=== PATIENT | female | born 1945 | race Hispanic/Latino ===

== ENCOUNTER 2017-04-24 21:30 | Inpatient (IN) | payer MEDICARE, OTHER ==
[2017-04-24 21:34] VITALS: BMI 27.8
[2017-04-24] MEDS ORDERED: Nitroglycerin 2% Ointment Foilpak UD TOP STA (21:39)
--- NOTE | 2017-04-24 21:39 | ED PDOC ---
Arrival/HPI - General Time Seen by Provider: 04/24/17 21:33 Historian: Patient - History of Present Illness Narrative History of Present Illness (Text): 04/24/17 21:39 Angie Narvaez is a 71 year old female, whose past medical history includes RI, CAD status post 3 stents, hyperlipidemia, hypertension, type 2 diabetes, myasthenia gravis, ITP, and cholecystectomy, who presents to the Emergency department complaining of chest pain. Patient states she has been experiencing intermittent burning chest pain today with associated belching. Patient denies any fever, chills, shortness of breath, abdominal pain, nausea, vomiting, diarrhea, urinary symptoms, back pain, neck pain, headache, dizziness , or any other complaints. PMD: Dr. Rosaura Saldana Hot Man: Dr. Mady Arteaga Time/Duration: Other (today) Symptom Onset: Gradual Symptom Course: Intermittent Quality: Burning Activities at Onset: Light Context: Home Past Medical History - Provider Review Nursing Documentation Reviewed: Yes - Infectious Disease Hx of Infectious Diseases: None - Cardiac Hx Pacemaker: No - Pulmonary Hx Respiratory Disorders: Yes Hx Asthma: Yes Hx Bronchitis: Yes - Neurological Hx Paralysis: No - HEENT Hx HEENT Disorder: Yes (reading glasses) Hx Cataracts: Yes - Renal Hx Renal Disorder: No (denies) - Endocrine/Metabolic Hx Diabetes Mellitus Type 2: Yes Hx Hypothyroidism: Yes - Hematological/Oncological Hx Blood Transfusions: Yes Hx Blood Transfusion Reaction: No - Integumentary Hx Dermatological Disorder: Yes Hx Basal Cell Carcinoma: Yes - Musculoskeletal/Rheumatological Hx Musculoskeletal Disorders: Yes - Gastrointestinal Hx Gastrointestinal Disorders: No - Genitourinary/Gynecological Hx Genitourinary Disorders: No - Psychiatric Hx Emotional Abuse: No Hx Physical Abuse: No Hx Substance Use: No - Surgical History Hx Cholecystectomy: Yes Hx Coronary Stent: Yes (x3) Hx Hysterectomy: Yes Hx Orthopedic Surgery: Yes (right knee) - Anesthesia Hx Anesthesia Reactions: No Hx Malignant Hyperthermia: No - Suicidal Assessment Feels Threatened In Home Enviroment: No Family/Social History - Physician Review Nursing Documentation Reviewed: Yes Family/Social History: Unknown Family HX Smoking Status: Never Smoked Hx Alcohol Use: No Hx Substance Use: No Hx Substance Use Treatment: No Allergies/Home Meds Allergies/Adverse Reactions: Allergies clarithromycin [From Biaxin] Allergy (Severe, Verified 04/24/17 21:40) ANAPHYLAXIS glucosamine Allergy (Severe, Verified 04/24/17 21:40) ANAPHYLAXIS Home Medications: Home Meds Medication Instructions Recorded Confirmed MetFORMIN [glucOPHAGE] 500 mg PO TID 06/05/15 04/24/17 Clopidogrel [Plavix] 75 mg PO DAILY 06/08/15 04/24/17 Metoprolol Succinate [Metoprolol 25 mg PO DAILY 06/08/15 04/24/17 Succinate Xl] Rosuvastatin Calcium [Crestor] 10 mg PO DAILY 06/08/15 04/24/17 Aspirin [Aspirin] 81 mg PO DAILY 06/10/15 04/24/17 Cholecalciferol (Vitamin D3) 1,000 unit PO DAILY 04/03/16 04/24/17 [Vitamin D3] Levothyroxine Sodium [Levothroid] 137 mcg PO QAM 04/03/16 04/24/17 Magnesium Oxide [Magnesium] 400 mg PO DAILY 04/03/16 04/24/17 Multivit-Min/FA/Lycopen/Lutein 1 tab PO DAILY 04/03/16 04/24/17 [Centrum Silver Tablet] Ubidecarenone [Coq-10] 200 mg PO DAILY 04/03/16 04/24/17 Valsartan [Diovan] 80 mg PO BID 04/03/16 04/24/17 Eltrombopag Olamine [Promacta] 1 tab PO DAILY 04/24/17 04/24/17 Review of Systems - Physician Review All systems were reviewed & negative as marked: Yes - Review of Systems Constitutional: Normal. absent: Fevers Eyes: Normal ENT: Normal Respiratory: Normal. absent: SOB, Cough Cardiovascular: Chest Pain Gastrointestinal: Normal. absent: Abdominal Pain, Diarrhea, Nausea, Vomiting Genitourinary Female: Normal. absent: Dysuria, Frequency, Hematuria, Urine Output Changes Musculoskeletal: Normal. absent: Back Pain, Neck Pain Skin: Normal. absent: Rash Neurological: Normal. absent: Headache, Dizziness Endocrine: Normal Hemo/Lymphatic: Normal Psychiatric: Normal Physical Exam Vital Signs Reviewed: Yes Vital Signs Temp Pulse Resp BP Pulse Ox 04/24/17 23:09 91 H 18 152/96 H 99 04/24/17 22:36 86 185/96 H 04/24/17 22:27 85 16 185/96 H 98 04/24/17 21:34 98.2 F 93 H 18 208/120 H 99 Temperature: Afebrile Blood Pressure: Hypertensive Pulse: Regular Respiratory Rate: Normal Appearance: Positive for: Well-Appearing, Non-Toxic, Comfortable Pain Distress: None Mental Status: Positive for: Alert and Oriented X 3 - Systems Exam Head: Present: Atraumatic, Normocephalic Pupils: Present: PERRL Extroacular Muscles: Present: EOMI Conjunctiva: Present: Normal Mouth: Present: Moist Mucous Membranes Neck: Present: Normal Range of Motion Respiratory/Chest: Present: Clear to Auscultation, Good Air Exchange. No: Respiratory Distress, Accessory Muscle Use Cardiovascular: Present: Regular Rate and Rhythm, Normal S1, S2. No: Murmurs Abdomen: Present: Normal Bowel Sounds. No: Tenderness, Distention, Peritoneal Signs Back: Present: Normal Inspection Upper Extremity: Present: Normal Inspection. No: Cyanosis, Edema Lower Extremity: Present: Normal Inspection. No: Edema Neurological: Present: GCS=15, CN II-XII Intact, Speech Normal Skin: Present: Warm, Dry, Normal Color. No: Rashes Psychiatric: Present: Alert, Oriented x 3, Normal Insight, Normal Concentration Medical Decision Making ED Course and Treatment: 04/24/17 21:39 Impression: 71 year old female complaining of intermittent burning chest pain radiating to her back and belching today. Plan: -- EKG -- CXR -- Labs, cardiac enzymes -- Urinalysis -- Nitroglycerin -- Reassess and disposition Prior Visits: Notes and results from previous visits were reviewed. On 04/15/2015, pt was seen in the Emergency department for substernal chest burning to bilateral shoulders. Pt was admitted to the hospital for further evaluation. Progress Notes: Reviewed EKG, NSR at [address]-segment elevations or depressions, no T-wave inversions, normal intervals. 04/24/17 22:06 Reviewed radiology, CXR shows no acute processes. 04/24/17 22:35 Case discussed with medical representative, who is aware and agrees with plan. Case discussed with Dr. Johns, who is aware and agrees with plan. Accepts pt in to hospitalist service. Pt will go to Telemetry observation for chest pain and hypertension. Discussed results and hospital observation plan with pt, who is aware and verbalizes understanding. - Lab Interpretations Lab Results: 04/24/17 21:39 04/24/17 21:39 Lab Results 04/24/17 21:40: PT 10.3, INR 0.95, APTT 23.1 L 04/24/17 21:39: Sodium 138, Potassium 4.9, Chloride 99, Carbon Dioxide 24, Anion Gap 20, BUN 16, Creatinine 0.8, Est GFR ( Amer) > 60, Est GFR (Non- Af Amer) > 60, Random Glucose 157 H, Calcium 9.7, Magnesium 1.9, Total Bilirubin 0.5, AST 27, ALT 33, Alkaline Phosphatase 71, Lactate Dehydrogenase 403, Total Creatine Kinase 50, Troponin I < 0.01 D, Total Protein 8.1, Albumin 4.9 H, Globulin 3.2, Albumin/Globulin Ratio 1.5 04/24/17 21:39: WBC 11.0 D, RBC 4.29, Hgb 12.7, Hct 37.1, MCV 86.5, MCH 29.6, MCHC 34.2, RDW 12.7, Plt Count 147, MPV 9.5, Gran % 56.0, Lymph % (Auto) 36.6 H , [place] % (Auto) 6.3 H, Eos % (Auto) 0.8 L, Baso % (Auto) 0.3, Gran # 6.16, Lymph # 4.0 H, [place] # 0.7 H, Eos # 0.1, Baso # 0.03 I have reviewed the lab results: Yes - RAD Interpretation Radiology Orders: 04/24/17 21:40 CHEST PORTABLE [RAD] Stat Tamper Operator: ED Physician - EKG Interpretation Interpreted by ED Physician: Yes Type: 12 lead EKG - Medication Orders Current Medication Orders: Aspirin (Ecotrin) 81 mg PO DAILY [facility] Last Admin: 04/25/17 11:39 Dose: 81 mg Cholecalciferol (Vitamin D) 1,000 iu PO DAILY [facility] Last Admin: 04/25/17 11:39 Dose: 1,000 iu Clonidine HCl (Catapres) 0.1 mg PO BID PRN PRN Reason: Systolic Blood Pressure Clopidogrel Bisulfate (Plavix) 75 mg PO DAILY [facility] Last Admin: 04/25/17 11:43 Dose: 75 mg Famotidine (Pepcid) 20 mg IVP BID [facility] Last Admin: 04/25/17 17:40 Dose: 20 mg IVP Administration Document 04/25/17 17:40 (Rec: 04/25/17 17:41 [place] [id number]) Charges for Administration # of IVP Administrations 1 Home Med (Home Med) 1 unit PO ACB [facility] Home Med (Home Med) 1 unit PO BID [facility] Last Admin: 04/25/17 18:02 Dose: Home Med (Home Med) 1 unit PO 1700 [facility] Last Admin: 04/25/17 18:02 Dose: 1 unit Insulin Human Lispro (Humalog Low) 0 units SC ACHS [facility] PRN Reason: Protocol Last Admin: 04/25/17 17:40 Dose: Not Given Non-Admin Reason: Blood Sugar Parameter [facility] Blood Glucose Document 04/25/17 17:40 (Rec: 04/25/17 17:40 [place] [id number]) Blood Glucose Finger Stick Blood Glucose (70-120) 128 Magnesium Oxide (Mag-Ox) 400 mg PO DAILY [facility] Last Admin: 04/25/17 11:40 Dose: 400 mg Metoprolol Succinate (Toprol Xl) 25 mg PO DAILY [facility] Last Admin: 04/25/17 11:40 Dose: 25 mg MAR Pulse and Blood Pressure Document 04/25/17 11:40 MF (Rec: 04/25/17 11:43 [place] [id number]) Pulse Pulse Rate (60-90) 73 Blood Pressure Blood Pressure (100/60-150/90) 124/74 Multivitamins/Minerals (Therapeutic-M Tab) 1 tab PO DAILY [facility] Last Admin: 04/25/17 11:40 Dose: 1 tab Non-Formulary Medication (Eltrombopag Olamine [Promacta]) 1 tab PO DAILY [facility] Non-Formulary Medication (Ubidecarenone [Coq-10]) 200 mg PO DAILY [facility] Last Admin: 04/25/17 11:50 Dose: Discontinued Medications Acetaminophen (Tylenol 325mg Tab) 650 mg PO STAT STA Stop: 04/25/17 05:55 Last Admin: 04/25/17 06:12 Dose: 650 mg [facility] Pain/Vitals Document 04/25/17 06:12 ST (Rec: 04/25/17 06:12 ST [id number]) Pain Reassessment Is This A Pain ReAssessment? No Sleep Is patient sleeping during reassessment? No Presence of Pain Presence of Pain Yes Pain Scale Used Pain Scale Used Numeric Location Pain Location Body Jewel Bearing Turner Re-Assess: [facility] Pain/Vitals Document 04/25/17 07:12 [place] (Rec: 04/25/17 11:31 [place] [facility] [id number][place] Pain Reassessment Is This A Pain ReAssessment? Yes Presence of Pain Presence of Pain No Pain Scale Used Pain Scale Used Numeric Acetaminophen (Tylenol 325mg Tab) 650 mg PO STAT ONE Stop: 04/25/17 17:46 Last Admin: 04/25/17 18:01 Dose: 650 mg MAR Pain/Vitals Document 04/25/17 18:01 (Rec: 04/25/17 18:01 [id number] Presence of Pain Presence of Pain No Pain Scale Used Pain Scale Used Numeric Re-Assess: [facility] Pain/Vitals Document 04/25/17 19:01 FDE (Rec: 04/25/17 19:32 FDE [facility] – [id number]) Pain Reassessment Is This A Pain ReAssessment? Yes Sleep Is patient sleeping during reassessment? Yes Amlodipine Besylate (Norvasc) 5 mg PO STAT STA Stop: 04/25/17 16:38 Last Admin: 04/25/17 16:52 Dose: 5 mg [facility] Pulse and Blood Pressure Document 04/25/17 16:52 (Rec: 04/25/17 16:53 [id number] Pulse Pulse Rate (60-90) 70 Blood Pressure Blood Pressure (100/60-150/90) 179/97 Atorvastatin Calcium (Lipitor) 40 mg PO DAILY [facility] Last Admin: 04/25/17 11:43 Dose: Not Given Non-Admin Reason: Patient Refused Home Med (Home Med) 1 unit PO BID [facility] Home Med (Home Med) 1 unit PO ACB [facility] Home Med (Home Med) 1 unit PO 1700 [facility] Hydralazine HCl (Apresoline) 10 mg IVP STAT STA Stop: 04/24/17 22:29 Last Admin: 04/24/17 22:36 Dose: 10 mg IVP Administration Document 04/24/17 22:36 REECE (Rec: 04/24/17 22:37 REECE [id number]) Charges for Administration # of IVP Administrations 1 MAR Pulse and Blood Pressure Document 04/24/17 22:36 REECE (Rec: 04/24/17 22:37 REECE [id number]) Pulse Pulse Rate (60-90) 86 Blood Pressure Blood Pressure (100/60-150/90) 185/96 Hydralazine HCl (Apresoline) 10 mg IVP Q6 PRN PRN Reason: SBP >= 160 Last Admin: 04/25/17 17:39 Dose: 10 mg IVP Administration Document 04/25/17 17:39 (Rec: 04/25/17 17:40 [id number] Charges for Administration # of IVP Administrations 1 SEP Pulse and Blood Pressure Document 04/25/17 17:39 (Rec: 04/25/17 17:40 [id number]) Pulse Pulse Rate (60-90) 70 Blood Pressure Blood Pressure (100/60-150/90) 197/97 Losartan Potassium (Cozaar) 100 mg PO STAT STA Stop: 04/24/17 23:43 Last Admin: 04/25/17 00:27 Dose: 100 mg Nitroglycerin (Nitro-Bid 2% Oint) 1 ea TOP STAT STA Stop: 04/24/17 21:40 Last Admin: 04/24/17 21:46 Dose: 1 ea - Scribe Statement The provider has reviewed the documentation as recorded by the Scribsariah Morillo All medical record entries made by the Scribe were at my direction and personally dictated by me. I have reviewed the chart and agree that the record accurately reflects my personal performance of the history, physical exam, medical decision making, and the department course for this patient. I have also personally directed, reviewed, and agree with the discharge instructions and disposition. Disposition/Present on Arrival - Present on Arrival Any Indicators Present on Arrival: No History of DVT/PE: No History of Uncontrolled Diabetes: No Urinary Catheter: No History Surgical Site Infection Following: None - Disposition Have Diagnosis and Disposition been Completed?: Yes Diagnosis: Chest pain Disposition: HOSPITALIZED Disposition Time: 22:35 Condition: FAIR
[2017-04-24 21:54] LABS: BASO # 0.03 K/mm3 (0.0-2.0); BASO % 0.3 % (0.0-3.0); EOS # 0.1 (0.0-0.7); EOS % 0.8 % (1.5-5.0); GRAN # 6.16 (1.4-6.5); HEMATOCRIT 37.1 % (36.0-48.0); LYMPH % 36.6 % (22.0-35.0); MEAN CELL VOLUME 86.5 fl (80.0-105.0); MEAN CORPUSCULAR HEMOGLOBIN 29.6 pg (25.0-35.0); MEAN CORPUSCULAR HGB CONC 34.2 g/dl (31.0-37.0); MEAN PLATELET VOLUME 9.5 fl (7.0-11.0); MONO # 0.7 (0.1-0.6); MONO % 6.3 % (1.0-6.0); RED CELL DISTRIBUTION WIDTH 12.7 % (11.5-14.5)
[2017-04-24 22:05] LABS: ALB/GLOB RATIO 1.5 (1.1-1.8); ALKALINE PHOSPHATASE 71 U/L (38-126); ALT/SGPT 33 U/L (7-56); AST/SGOT 27 U/L (14-36); BILIRUBIN,TOTAL 0.5 mg/dL (0.2-1.3); BLOOD UREA NITROGEN 16 mg/dL (7-21); CALCIUM 9.7 mg/dL (8.4-10.5); CARBON DIOXIDE 24 mmol/L (21-33); GFR AFRICAN-AMERICAN > 60; GLUCOSE,RANDOM 157 mg/dL (70-110); MAGNESIUM 1.9 mg/dL (1.7-2.2); POTASSIUM 4.9 mmol/L (3.6-5.0); SODIUM 138 mmol/L (132-148); TOTAL PROTEIN 8.1 g/dL (5.8-8.3)
[2017-04-24 22:08] LABS: CHLORIDE 99 mmol/L (98-107)
[2017-04-24 22:09] LABS: INR 0.95 (0.93-1.08); PARTIAL THROMBOPLASTIN TIME 23.1 Seconds (23.7-30.8)
[2017-04-24 22:17] LABS: TROPONIN I < 0.01 ng/mL
--- NOTE | 2017-04-25 00:28 | CP.PCM.HP ---
<Denzel Ramirez - Last Filed: 04/25/17 00:43> History of Present Illness - History of Present Illness History of Present Illness: IM H&P for Hospitalist Service CC: Burning chest pain HPI: This is a 71 yo F with PMH of MT, CAD s/p 3 stents, hyperlipidemia, hypertension, type 2 diabetes, myasthenia gravis, ITP, and cholecystectomy who presents to [facility] with complaint of burning chest pain for several hours. Patient describes pain as widespread across chest, resolved now at time of exam. Also reports intermittent belching concurrent with the chest pain, also now resolved. Denies association with PO intake, and reports minimal PO intake today in general, mainly snacks throughout the day. Denies radiation of the widespread chest pain, including to jaw, neck, or down arms. No shortness of breath, no nausea, no emesis, no focal weakness, no dysuria/ hematuria, fevers/chills, or acute changes in vision. Reports compliance with her home medications, no sick contacts. All other ROS in 12-point system review negative. PMH: As above PSH: Cholecystectomy, Cardiac cath, cardiac stents x3, R-knee arthroscopy FHx: DM2, CAD (multiple family members) SHx: denies any tobacco/EtOH/Illicits/IVDA hx PMD: Dr. Saldana Present on Admission - Present on Admission Any Indicators Present on Admission: No History of DVT/PE: No History of Uncontrolled Diabetes: No Urinary Catheter: No Review of Systems - Review of Systems All systems: reviewed and no additional remarkable complaints except (as per HPI ) Past Patient History - Infectious Disease Hx of Infectious Diseases: None - Past Social History Smoking Status: Never Smoked - CARDIAC Hx Pacemaker: No - PULMONARY Hx Respiratory Disorders: Yes Hx Asthma: Yes Hx Bronchitis: Yes - NEUROLOGICAL Hx Paralysis: No - HEENT Hx HEENT Problems: Yes (reading glasses) Hx Cataracts: Yes - RENAL Hx Chronic Kidney Disease: No (denies) - ENDOCRINE/METABOLIC Hx Diabetes Mellitus Type 2: Yes Hx Hypothyroidism: Yes - HEMATOLOGICAL/ONCOLOGICAL Hx Blood Transfusions: Yes Hx Blood Transfusion Reaction: No - INTEGUMENTARY Hx Dermatological Problems: Yes Hx Basil Cell: Yes - MUSCULOSKELETAL/RHEUMATOLOGICAL Hx Musculoskeletal Disorders: Yes - GASTROINTESTINAL Hx Gastrointestinal Disorders: No - GENITOURINARY/GYNECOLOGICAL Hx Genitourinary Disorders: No - PSYCHIATRIC Hx Emotional Abuse: No Hx Physical Abuse: No Hx Substance Use: No - SURGICAL HISTORY Hx Cholecystectomy: Yes Hx Coronary Stent: Yes (x3) Hx Hysterectomy: Yes Hx Orthopedic Surgery: Yes (right knee) - ANESTHESIA Hx Anesthesia Reactions: No Hx Malignant Hyperthermia: No Meds Allergies/Adverse Reactions: Allergies Allergy/AdvReac Type Severity Reaction Status Date / Time clarithromycin [From Biaxin] Allergy Severe ANAPHYLAXIS Verified 04/24/17 21:40 glucosamine Allergy Severe ANAPHYLAXIS Verified 04/24/17 21:40 Physical Exam - Constitutional Appears: Well, Non-toxic, No Acute Distress - Head Exam Head Exam: ATRAUMATIC, NORMAL INSPECTION, NORMOCEPHALIC - Eye Exam Eye Exam: EOMI, Normal appearance, PERRL. absent: Conjunctival injection, Scleral icterus Pupil Exam: NORMAL ACCOMODATION, PERRL. absent: Fixed, Irregular, Unequal - ENT Exam ENT Exam: Mucous Membranes Moist. absent: Mucous Membranes Dry - Neck Exam Neck exam: Negative for: Lymphadenopathy, Tenderness, Thyromegaly - Respiratory Exam Respiratory Exam: Clear to Auscultation Bilateral, NORMAL BREATHING PATTERN. absent: Accessory Muscle Use, Chest Wall Tenderness, Decreased Breath Sounds, Rales, Rhonchi, Wheezes - Cardiovascular Exam Cardiovascular Exam: REGULAR RHYTHM, RRR, +S1, +S2. absent: Bradycardia, Tachycardia, Irregular Rhythm, JVD, +S4 - GI/Abdominal Exam GI & Abdominal Exam: Normal Bowel Sounds, Soft. absent: Diminished Bowel Sounds , Firm, Guarding, Hyperactive Bowel Sounds, Hypoactive Bowel Sounds, Rigid, Tenderness - Extremities Exam Extremities exam: Positive for: calf tenderness, normal capillary refill, normal inspection, pedal pulses present (+2 radials, ). Negative for: pedal edema, tenderness - Neurological Exam Neurological exam: Alert, CN II-XII Intact, Oriented x3 - Psychiatric Exam Psychiatric exam: Normal Affect, Normal Mood - Skin Skin Exam: Dry, Intact, Normal Color, Warm Results - Vital Signs Recent Vital Signs: Last Vital Signs Temp 98.2 F 04/24/17 21:34 Pulse 91 H 04/24/17 23:09 Resp 18 04/24/17 23:09 BP 152/96 H 04/24/17 23:09 Pulse Ox 99 04/24/17 23:09 - Labs Result Diagrams: 04/24/17 21:39 04/24/17 21:39 Assessment & Plan - Assessment and Plan (Free Text) Assessment: This is a 71 yo F with PMH of MT, CAD s/p 3 stents, hyperlipidemia, hypertension, type 2 diabetes, myasthenia gravis, ITP, and cholecystectomy who presents to [facility] with complaint of burning chest pain for several hours. Given her extensive cardiac hx, she is being admitted to telemetry for observation, r/ o ACS. Plan: 1) Chest pain -ACS vs Reflex vs Hypertensive urgency -Trop x1 negative and EKG NSR with normal segments, so less likely ACS, but given cardiac hx, need to more adequately rule out -reports belching and burning pain concurrent with chest pain, more typical of reflux, but diabetic female, so at high risk for atypical ACS presentation -elevated BPs in ED, Systolic 180's-190's; may be elevated 2/2 anxiety and condition, may also be the cause of chest pain (i.e. Hypertensive urgency), will restart home antihypertensives, 10mg IVP q6 prn hydralazine for SBP > 160 -Trending trops x2 q8, repeat EKG in AM -Cardio consulted, appreciate all recs -Lipid panel, TSH, and electrolytes ordered, f/u -Pepcid for GI ppx, given on Plavix 2) Hx of CAD x3 stents, HTN -continue ASA, Plavix, statin, Metoprolol -PRN Hydralazine for hypertensive urgency 3) HLD -continue statin 4) NIDDM -hold home metformin, continue with low-dose insulin sliding scale and accuchecks ACHS 5) MG -resulting hypothyroidism -pt specifically requesting home med to take, will allow when check and cleared by pharmacy 6) ITP -continue home Promecta Dispo: Tele obs, pending repeat Trops/EKG and Cardio's assessment/input FEN: Heart-healthy consistent carb, NS 100cc/hr Access: Peripheral IV Consults: Cardio Ppx: pepcid for GI ppx, heaprin for DVT ppx Patient seen, reviewed, and discussed with attending, Dr. Johns. Decision To Admit - Pt Status Changed To: Hospital Disposition Of: Observation - . Bed Request Type: Telemetry <Galdino Johns Q - Last Filed: 04/25/17 03:06> Results - Vital Signs Recent Vital Signs: Last Vital Signs Temp 98.1 F 04/25/17 00:14 Pulse 98 H 04/25/17 02:00 Resp 20 04/25/17 02:00 BP 124/73 04/25/17 02:00 Pulse Ox 99 04/24/17 23:09 - Labs Result Diagrams: 04/24/17 21:39 04/24/17 21:39 Attending/Attestation - Attestation I have personally seen and examined this patient.: Yes I have fully participated in the care of the patient.: Yes I have reviewed all pertinent clinical information: Yes
[2017-04-25] MEDS ORDERED: Levothyroxine 112 MCG TAB PO SCH (07:30)
[2017-04-25] MEDS ORDERED: Levothyroxine 25 MCG TAB PO SCH (07:30)
[2017-04-25 07:43] LABS: BASO # 0.03 K/mm3 (0.0-2.0); BASO % 0.4 % (0.0-3.0); EOS # 0.1 (0.0-0.7); EOS % 0.7 % (1.5-5.0); GRAN # 4.95 (1.4-6.5); GRAN % 59.5 % (50.0-68.0); HEMATOCRIT 32.6 % (36.0-48.0); LYMPH # 2.7 (1.2-3.4); LYMPH % 32.5 % (22.0-35.0); MEAN CELL VOLUME 86.7 fl (80.0-105.0); MEAN CORPUSCULAR HEMOGLOBIN 29.3 pg (25.0-35.0); MEAN CORPUSCULAR HGB CONC 33.7 g/dl (31.0-37.0); MEAN PLATELET VOLUME 9.9 fl (7.0-11.0); MONO # 0.6 (0.1-0.6); MONO % 6.9 % (1.0-6.0); RED CELL DISTRIBUTION WIDTH 12.9 % (11.5-14.5); WHITE BLOOD COUNT 8.3 10^3/ul (4.5-11.0)
[2017-04-25 07:54] LABS: ALB/GLOB RATIO 1.5 (1.1-1.8); ALKALINE PHOSPHATASE 52 U/L (38-126); ALT/SGPT 30 U/L (7-56); AST/SGOT 23 U/L (14-36); BILIRUBIN,TOTAL 0.6 mg/dL (0.2-1.3); BLOOD UREA NITROGEN 15 mg/dL (7-21); CARBON DIOXIDE 27 mmol/L (21-33); CHLORIDE 98 mmol/L (98-107); CHOLESTEROL 106 mg/dL (130-200); GFR AFRICAN-AMERICAN > 60; GLUCOSE,RANDOM 128 mg/dL (70-110); MAGNESIUM 1.9 mg/dL (1.7-2.2); PHOSPHOROUS 4.6 mg/dL (2.5-4.5); SODIUM 136 mmol/L (132-148); TOTAL PROTEIN 6.8 g/dL (5.8-8.3)
[2017-04-25 08:06] LABS: TROPONIN I < 0.01 ng/mL
[2017-04-25] MEDS: Insulin Lispro (humaLOG) LOW Coverage SC SCH ×4 (08:56→22:20)
--- NOTE | 2017-04-25 09:27 | CON ---
DATE: 04/25/2017 CONSULTATION INDICATION: Chest pain, coronary artery disease. HISTORY OF PRESENT ILLNESS: This is a 71-year-old woman, known to me, admitted yesterday with chest and back discomfort. This was a burning type chest pain across the chest, associated with muscular type pain in the back. There was belching. This occurred on and off. It got worse. She came to the emergency room because she though it might be heart related, although she was also concernedthat the pain in the back was muscular and not related to her heart. There was no shortness of breath, orthopnea, PND, syncope , presyncope, lightheadedness, dizziness, vertigo, palpitations, edema, claudication, fever, chills, cough, sputum production, hemoptysis, abdominal pain, nausea, vomiting, diarrhea, constipation or melena. PAST MEDICAL HISTORY: Notable for coronary artery disease. She has a remote myocardial infarction. She has had stents put in the LAD and right coronary artery in 05/2015. She has a history of hypertension, hyperlipidemia, diabetes, myasthenia gravis, ITP, gallbladder surgery, but no congestive heart failure, arrhythmia, stroke, TIA, or gout. MEDICATIONS AT THE TIME OF ADMISSION: Include metformin, Plavix, metoprolol, Crestor, aspirin, vitamin D3, levothyroxine, magnesium, multivitamin, CoQ10, Diovan and Promacta. ALLERGIES: SHE NOTES AN ALLERGY TO BIAXIN AND GLUCOSAMINE. SOCIAL HISTORY: She lives at home with her . She does not smoke cigarettes. She does not drink alcohol. She is ambulatory. FAMILY HISTORY: Noncontributory. REVIEW OF SYSTEMS: Ten-point review of systems is otherwise unremarkable except as noted above. PHYSICAL EXAMINATION: GENERAL: She is a well-developed woman, no acute distress. VITAL SIGNS: She is in sinus rhythm at 73 beats per minute. She is afebrile. Blood pressure 124/74, respirations 20 and O2 saturation 97% to 99% on room air. HEENT EXAM: Reveals no neck vein distention, thyromegaly or carotid bruits. Mucous membranes moist. Conjunctivae pink. NECK: Supple. LUNGS: Potter clear throughout. HEART: Reveals normal first and second heart sounds. ABDOMEN: Soft. Bowel sounds present. No mass, organomegaly, tenderness, rebound or guarding. No CVA tenderness. No palpable abdominal aortic aneurysm. EXTREMITIES EXAM: Revealed no cyanosis, clubbing or edema. NEUROLOGICALLY: Awake, alert and oriented. SKIN: Warm and dry. No rash or cellulitis. PSYCHIATRIC: Normal as to mood and affect. LABORATORY AND IMAGING: EKG shows regular sinus rhythm, no acute changes. A portable chest x-ray is not interpreted yet. The lungs are clear and no CHF by my reading. CBC is unremarkable. PT, INR and PTT unremarkable. Electrolytes, BUN, creatinine unremarkable. Blood sugars noted. Magnesium normal. LFTs normal. CK normal. Two troponins normal. Total cholesterol 106, LDL 44, HDL 44. TSH normal. IMPRESSION: Angie Narvaez is a 71-year-old woman with coronary artery disease, coronary stents, post myocardial infarction, hypertension, hyperlipidemia, diabetes, myasthenia gravis, idiopathic thrombocytopenic purpura, who presents with burning type chest pain associated with a muscular type back discomfort and belching. These symptoms have resolved although she still has mild back discomfort this morning. Troponins are negative. The first EKG was benign. I repeated the EKG this morning. We will get another troponin in a few hours. She can be out of bed. I will review her old records. Nuclear stress testing should be considered, possibly on an outpatient basis. If she has no further chest pain and the cardiac work-up is negative, a gastroenterology evaluation should be considered as well. I will continue her usual cardiac medications including aspirin and Plavix, Lipitor, metoprolol and Cozaar as a substitute for Diovan. She can be out of bed. I will order an echocardiogram. I will follow along with you. I will make additional recommendations based on her clinical course. De Arteaga MD MTDD
[2017-04-25] MEDS ORDERED: LEVOTHYROXINE SODIUM 137 MCG PO SCH (10:00)
[2017-04-25] MEDS ORDERED: ELTROMBOPAG OLAMINE PO SCH (10:00)
[2017-04-25] MEDS ORDERED: VALSARTAN 80 MG TAB PO SCH (11:15)
[2017-04-25] MEDS: Metoprolol Succinate 25 mg XL Tab PO SCH (11:40)
[2017-04-25] MEDS: Multivitamin With Minerals Tab PO SCH (11:40)
[2017-04-25] MEDS: Magnesium Oxide 400 mg Tab UD PO SCH (11:40)
[2017-04-25] MEDS: Non Formulary Medication (Ubidecarenone [Coq-10] 200 MG) PO SCH (11:50)
--- NOTE | 2017-04-25 13:12 | RAD ---
HISTORY: cp COMPARISON: Comparison chest dated 04/02/2016 FINDINGS: LUNGS: Poor inspiration with low lung volumes, crowded bronchovascular markings and mild bibasilar atelectasis. PLEURA: No significant pleural effusion identified, no pneumothorax apparent. CARDIOVASCULAR: Normal. OSSEOUS STRUCTURES: No significant abnormalities. VISUALIZED UPPER ABDOMEN: Normal. OTHER FINDINGS: None. IMPRESSION: Poor inspiration with low lung volumes, crowded bronchovascular markings and mild bibasilar atelectasis.
--- NOTE | 2017-04-25 13:38 | CP.PCM.PN ---
<Itz Marcum - Last Filed: 04/25/17 16:43> Subjective - Date & Time of Evaluation Date of Evaluation: 04/25/17 Time of Evaluation: 07:37 - Subjective Subjective: Patient was seen and examined at bedside. Per nursing there were no acute events overnight. The patient reports feeling better today. The patient still is reporting a burning chest pain but says it's less in severity today. The patient denies any shortness of breath, nausea, vomiting, changes in vision, headache, sore throat, or any other complaints. Objective - Vital Signs/Intake and Output Vital Signs (last 24 hours): Temp Pulse Resp BP Pulse Ox 98.6 F 77 20 164/93 H 97 04/25/17 12:00 04/25/17 12:40 04/25/17 12:00 04/25/17 12:00 04/25/17 06:00 Intake and Output: 04/25/17 04/25/17 06:59 18:59 Intake Total 620 Output Total 700 Balance -80 - Medications Medications: Current Medications Aspirin (Ecotrin) 81 mg PO DAILY [facility] Last Admin: 04/25/17 11:39 Dose: 81 mg Cholecalciferol (Vitamin D) 1,000 iu PO DAILY [facility] Last Admin: 04/25/17 11:39 Dose: 1,000 iu Clopidogrel Bisulfate (Plavix) 75 mg PO DAILY [facility] Last Admin: 04/25/17 11:43 Dose: 75 mg Famotidine (Pepcid) 20 mg IVP BID [facility] Last Admin: 04/25/17 11:39 Dose: 20 mg Home Med (Home Med) 1 unit PO ACB [facility] Home Med (Home Med) 1 unit PO BID [facility] Home Med (Home Med) 1 unit PO 1700 [facility] Hydralazine HCl (Apresoline) 10 mg IVP Q6 PRN PRN Reason: SBP >= 160 Insulin Human Lispro (Humalog Low) 0 units SC ACHS [facility] PRN Reason: Protocol Last Admin: 04/25/17 12:24 Dose: Not Given Magnesium Oxide (Mag-Ox) 400 mg PO DAILY [facility] Last Admin: 04/25/17 11:40 Dose: 400 mg Metoprolol Succinate (Toprol Xl) 25 mg PO DAILY [facility] Last Admin: 04/25/17 11:40 Dose: 25 mg Multivitamins/Minerals (Therapeutic-M Tab) 1 tab PO DAILY [facility] Last Admin: 04/25/17 11:40 Dose: 1 tab Non-Formulary Medication (Eltrombopag Olamine [Promacta]) 1 tab PO DAILY [facility] Non-Formulary Medication (Ubidecarenone [Coq-10]) 200 mg PO DAILY [facility] Last Admin: 04/25/17 11:50 Dose: Not Given - Labs Labs: 04/25/17 07:34 04/25/17 05:00 PT 10.3 Seconds (9.9-11.8) 04/24/17 21:40 INR 0.95 (0.93-1.08) 04/24/17 21:40 APTT 23.1 Seconds (23.7-30.8) L 04/24/17 21:40 - Head Exam Head Exam: ATRAUMATIC, NORMAL INSPECTION, NORMOCEPHALIC - Eye Exam Eye Exam: EOMI, Normal appearance, PERRL. absent: Periorbital tenderness Pupil Exam: NORMAL ACCOMODATION, PERRL. absent: Irregular, Unequal - ENT Exam ENT Exam: Mucous Membranes Moist, Normal Exam. absent: Normal Oropharynx, TM's Normal Bilaterally - Neck Exam Neck Exam: Normal Inspection. absent: Lymphadenopathy, Thyromegaly - Respiratory Exam Respiratory Exam: Clear to Ausculation Bilateral, NORMAL BREATHING PATTERN. absent: Chest Wall Tenderness, Prolonged Expiratory Phase, Respiratory Distress - Cardiovascular Exam Cardiovascular Exam: REGULAR RHYTHM, RRR, +S1, +S2. absent: Gallop, Rubs - GI/Abdominal Exam GI & Abdominal Exam: Soft, Normal Bowel Sounds. absent: Tenderness, Hyperactive Bowel Sounds - Extremities Exam Extremities Exam: Full ROM. absent: Joint Swelling, Pedal Edema, Tenderness - Back Exam Back Exam: NORMAL INSPECTION. absent: CVA tenderness (L), CVA tenderness (R), paraspinal tenderness - Neurological Exam Neurological Exam: Alert, Awake, CN II-XII Intact, Normal Gait, Oriented x3 - Psychiatric Exam Psychiatric exam: Normal Affect, Normal Mood - Skin Skin Exam: Dry, Intact, Normal Color Assessment and Plan - Assessment and Plan (Free Text) Assessment: This is a 71 yo F with PMH of [place], CAD s/p 3 stents, hyperlipidemia, hypertension, type 2 diabetes, myasthenia gravis, ITP, and cholecystectomy who presents to [facility] [place] with complaint of burning chest pain for several hours. Given her extensive cardiac hx, she is being admitted to telemetry for observation, r/ o ACS. Plan: 1) Chest pain -ACS vs Reflex vs Hypertensive urgency -EKG NSR with normal segments, so less likely ACS, but given cardiac hx, need to more adequately rule out -reports belching and burning pain concurrent with chest pain, more typical of reflux, but diabetic female, so at high risk for atypical ACS presentation -elevated BPs in ED, Systolic 180's-190's; may be elevated 2/2 anxiety and condition, may also be the cause of chest pain (i.e. Hypertensive urgency), will restart home antihypertensives, 10mg IVP q6 prn hydralazine for SBP > 160 -Trending trops x2(-). -Cardio rec's appreciated. -ECHO ordered. Will f/u with results tomorrow. -Lipid panel, TSH, and electrolytes ordered, f/u -Pepcid for GI ppx, given on Plavix 2) Hx of CAD x3 stents, HTN -continue ASA, Plavix, statin, Metoprolol -Continue PRN Hydralazine for hypertensive urgency 3) HLD -continue statin 4) NIDDM -continue with low-dose insulin sliding scale and accuchecks ACHS 5) MG -resulting hypothyroidism -continue home meds. 6) ITP -continue home Promecta <Amber Eaton - Last Filed: 04/25/17 19:05> Objective - Vital Signs/Intake and Output Vital Signs (last 24 hours): Temp Pulse Resp BP Pulse Ox 98 F 81 18 197/97 H 99 04/25/17 18:00 04/25/17 18:00 04/25/17 18:00 04/25/17 18:00 04/25/17 18:00 Intake and Output: 04/25/17 04/26/17 18:59 06:59 Intake Total 860 Output Total 1300 Balance -440 - Medications Medications: Current Medications Aspirin (Ecotrin) 81 mg PO DAILY [facility] Last Admin: 04/25/17 11:39 Dose: 81 mg Cholecalciferol (Vitamin D) 1,000 iu PO DAILY [facility] Last Admin: 04/25/17 11:39 Dose: 1,000 iu Clonidine HCl (Catapres) 0.1 mg PO BID PRN PRN Reason: Systolic Blood Pressure Clopidogrel Bisulfate (Plavix) 75 mg PO DAILY [facility] Last Admin: 04/25/17 11:43 Dose: 75 mg Famotidine (Pepcid) 20 mg IVP BID [facility] Last Admin: 04/25/17 17:40 Dose: 20 mg Home Med (Home Med) 1 unit PO ACB [facility] Home Med (Home Med) 1 unit PO BID [facility] Last Admin: 04/25/17 18:02 Dose: Not Given Home Med (Home Med) 1 unit PO 1700 [facility] Last Admin: 04/25/17 18:02 Dose: 1 unit Insulin Human Lispro (Humalog Low) 0 units SC ACHS [facility] PRN Reason: Protocol Last Admin: 04/25/17 17:40 Dose: Not Given Magnesium Oxide (Mag-Ox) 400 mg PO DAILY [facility] Last Admin: 04/25/17 11:40 Dose: 400 mg Metoprolol Succinate (Toprol Xl) 25 mg PO DAILY [facility] Last Admin: 04/25/17 11:40 Dose: 25 mg Multivitamins/Minerals (Therapeutic-M Tab) 1 tab PO DAILY [facility] Last Admin: 04/25/17 11:40 Dose: 1 tab Non-Formulary Medication (Eltrombopag Olamine [Promacta]) 1 tab PO DAILY [facility] Non-Formulary Medication (Ubidecarenone [Coq-10]) 200 mg PO DAILY [facility] Last Admin: 04/25/17 11:50 Dose: Not Given - Labs Labs: 04/25/17 07:34 04/25/17 05:00 PT 10.3 Seconds (9.9-11.8) 04/24/17 21:40 INR 0.95 (0.93-1.08) 04/24/17 21:40 APTT 23.1 Seconds (23.7-30.8) L 04/24/17 21:40 Attending/Attestation - Attestation I have personally seen and examined this patient.: Yes I have fully participated in the care of the patient.: Yes I have reviewed all pertinent clinical information, including history, physical exam and plan: Yes Notes (Text): 04/25/17 19:02 71 year old female with past medical history of CAD, hypertension, dyslipidemia and diabetes who presented with complaint of chest pain and elevated BP. Serial cardiac enzymes were negative and ACS was ruled out. Cardiology evaluation was appreciated who ordered for echocardiogram. Continue with aspirin, plavix, metoprolol and statin. Will follow up with cardiology recommendations regarding stress test. Patient continues to have elevated blood pressure this evening on diovan, metoprolol and hydralazine prn. Will add norvasc. Amber Eaton MD Hospitalist.
[2017-04-25] MEDS ORDERED: CRESTOR 5 MG PO SCH ×2 (17:00)
[2017-04-25] MEDS ORDERED: Home Med 1 UNIT PO SCH (18:00)
[2017-04-25] MEDS: VALSARTAN 80 MG TAB PO SCH (18:02)
[2017-04-26 00:27] VITALS: RESP 20
[2017-04-26 05:59] VITALS: TEMP 98.5; O2SAT 96
[2017-04-26] MEDS ORDERED: LEVOTHYROXINE 137 MCG TABLET PO SCH ×2 (07:30)
[2017-04-26 07:54] LABS: BASO # 0.02 K/mm3 (0.0-2.0); BASO % 0.3 % (0.0-3.0); EOS # 0.1 (0.0-0.7); EOS % 0.9 % (1.5-5.0); GRAN # 4.47 (1.4-6.5); GRAN % 59.7 % (50.0-68.0); HEMATOCRIT 35.9 % (36.0-48.0); LYMPH # 2.3 (1.2-3.4); LYMPH % 31.2 % (22.0-35.0); MEAN CELL VOLUME 85.9 fl (80.0-105.0); MEAN CORPUSCULAR HEMOGLOBIN 29.2 pg (25.0-35.0); MEAN PLATELET VOLUME 9.2 fl (7.0-11.0); MONO # 0.6 (0.1-0.6); MONO % 7.9 % (1.0-6.0); RED CELL DISTRIBUTION WIDTH 12.7 % (11.5-14.5); WHITE BLOOD COUNT 7.5 10^3/ul (4.5-11.0)
[2017-04-26 08:06] LABS: ALB/GLOB RATIO 1.7 (1.1-1.8); ALKALINE PHOSPHATASE 58 U/L (38-126); ALT/SGPT 44 U/L (7-56); AST/SGOT 31 U/L (14-36); BILIRUBIN,TOTAL 0.8 mg/dL (0.2-1.3); BLOOD UREA NITROGEN 15 mg/dL (7-21); CALCIUM 9.4 mg/dL (8.4-10.5); CARBON DIOXIDE 26 mmol/L (21-33); CHLORIDE 96 mmol/L (95-110); GFR AFRICAN-AMERICAN > 60; GLUCOSE,RANDOM 136 mg/dL (70-110); POTASSIUM 4.4 mmol/L (3.6-5.0); SODIUM 132 mmol/L (132-148); TOTAL PROTEIN 7.1 g/dL (5.8-8.3)
[2017-04-26] MEDS: Insulin Lispro (humaLOG) LOW Coverage SC SCH ×2 (08:34→12:54)
--- NOTE | 2017-04-26 08:55 | CP.PCM.PN ---
Subjective - Date & Time of Evaluation Date of Evaluation: 04/26/17 Time of Evaluation: 07:00 - Subjective Subjective: Stable on 2R. She feels much better. No CP or back pain now. V/ noted. RSR PE: Lungs: clear Cor.: S1S2 Abd.: soft Ext.: no edema Neuro.: alert I/O= 960/1300 Labs noted. trops neg x 3. Objective - Vital Signs/Intake and Output Vital Signs (last 24 hours): Temp Pulse Resp BP Pulse Ox 98.5 F 78 20 146/78 96 04/26/17 05:58 04/26/17 05:58 04/26/17 05:58 04/26/17 05:58 04/26/17 05:58 Intake and Output: 04/26/17 04/26/17 06:59 18:59 Intake Total 100 Output Total 0 Balance 100 - Medications Medications: Current Medications Aspirin (Ecotrin) 81 mg PO DAILY [facility] Last Admin: 04/25/17 11:39 Dose: 81 mg Cholecalciferol (Vitamin D) 1,000 iu PO DAILY [facility] Last Admin: 04/25/17 11:39 Dose: 1,000 iu Clonidine HCl (Catapres) 0.1 mg PO BID PRN PRN Reason: Systolic Blood Pressure Clopidogrel Bisulfate (Plavix) 75 mg PO DAILY [facility] Last Admin: 04/25/17 11:43 Dose: 75 mg Famotidine (Pepcid) 20 mg PO BID [facility] Home Med (Home Med) 1 unit PO ACB [facility] Home Med (Home Med) 1 unit PO BID [facility] Last Admin: 04/25/17 18:02 Dose: Not Given Home Med (Home Med) 1 unit PO 1700 [facility] Last Admin: 04/25/17 18:02 Dose: 1 unit Insulin Human Lispro (Humalog Low) 0 units SC ACHS [facility] PRN Reason: Protocol Last Admin: 04/26/17 08:34 Dose: Not Given Magnesium Oxide (Mag-Ox) 400 mg PO DAILY [facility] Last Admin: 04/25/17 11:40 Dose: 400 mg Metoprolol Succinate (Toprol Xl) 25 mg PO DAILY [facility] Last Admin: 04/25/17 11:40 Dose: 25 mg Multivitamins/Minerals (Therapeutic-M Tab) 1 tab PO DAILY [facility] Last Admin: 04/25/17 11:40 Dose: 1 tab Non-Formulary Medication (Eltrombopag Olamine [Promacta]) 1 tab PO DAILY [facility] Non-Formulary Medication (Ubidecarenone [Coq-10]) 200 mg PO DAILY [facility] Last Admin: 04/25/17 11:50 Dose: Not Given - Labs Labs: 04/26/17 07:50 04/26/17 07:50 PT 10.3 Seconds (9.9-11.8) 04/24/17 21:40 INR 0.95 (0.93-1.08) 04/24/17 21:40 APTT 23.1 Seconds (23.7-30.8) L 04/24/17 21:40 Assessment and Plan - Assessment and Plan (Free Text) Assessment: Chest and back pain, belching CAD/CO/PCI's HBP HD Diabetes M. gravis ITP GB surgery Plan: OOB ad cortes Home today: out-pt. ETT and echo to be arranged in our office. Continue usual cardiac/BP meds upon D/C. She will call if symptoms recur.
[2017-04-26] MEDS ORDERED: Home Med 1 UNIT PO SCH (10:00)
[2017-04-26] MEDS: Multivitamin With Minerals Tab PO SCH (10:24)
[2017-04-26] MEDS: Magnesium Oxide 400 mg Tab UD PO SCH (10:25)
[2017-04-26] MEDS: Metoprolol Succinate 25 mg XL Tab PO SCH (10:25)
[2017-04-26] MEDS: VALSARTAN 80 MG TAB PO SCH (10:29)
[2017-04-26] MEDS: Non Formulary Medication (Ubidecarenone [Coq-10] 200 MG) PO SCH (10:47)
[2017-04-26 12:00] VITALS: BP 144/80; PULSE 68
--- NOTE | 2017-04-26 12:28 | CARD ---
APPROVED REPORT EKG Measurement Heart [id number] <Conclusion> Normal sinus rhythm Normal ECG
--- NOTE | 2017-04-26 13:06 | CP.PCM.DIS ---
<TrixieDennehotso - Last Filed: 04/26/17 13:19> Provider - Provider Date of Admission: 04/25/17 18:23 Attending physician: Lion Castellanos MD Primary care physician: Bob Saldana MD Time Spent in preparation of Discharge (in minutes): 45 Hospital Course - Lab Results Lab Results: Most Recent Lab Values WBC 7.5 10^3/ul (4.5-11.0) 04/26/17 07:50 RBC 4.18 10^6/uL (3.5-6.1) 04/26/17 07:50 Hgb 12.2 g/dL (12.0-16.0) 04/26/17 07:50 Hct 35.9 % (36.0-48.0) L 04/26/17 07:50 MCV 85.9 fl (80.0-105.0) 04/26/17 07:50 MCH 29.2 pg (25.0-35.0) 04/26/17 07:50 MCHC 34.0 g/dl (31.0-37.0) 04/26/17 07:50 RDW 12.7 % (11.5-14.5) 04/26/17 07:50 Plt Count 164 10^3/uL (120.0-450.0) 04/26/17 07:50 MPV 9.2 fl (7.0-11.0) 04/26/17 07:50 Gran % 59.7 % (50.0-68.0) 04/26/17 07:50 Lymph % (Auto) 31.2 % (22.0-35.0) 04/26/17 07:50 [place] % (Auto) 7.9 % (1.0-6.0) H 04/26/17 07:50 Eos % (Auto) 0.9 % (1.5-5.0) L 04/26/17 07:50 Baso % (Auto) 0.3 % (0.0-3.0) 04/26/17 07:50 Gran # 4.47 (1.4-6.5) 04/26/17 07:50 Lymph # 2.3 (1.2-3.4) 04/26/17 07:50 [place] # 0.6 (0.1-0.6) 04/26/17 07:50 Eos # 0.1 (0.0-0.7) 04/26/17 07:50 Baso # 0.02 K/mm3 (0.0-2.0) 04/26/17 07:50 PT 10.3 Seconds (9.9-11.8) 04/24/17 21:40 INR 0.95 (0.93-1.08) 04/24/17 21:40 APTT 23.1 Seconds (23.7-30.8) L 04/24/17 21:40 Sodium 132 mmol/L (132-148) 04/26/17 07:50 Potassium 4.4 mmol/L (3.6-5.0) 04/26/17 07:50 Chloride 96 mmol/L (95-110) 04/26/17 07:50 Carbon Dioxide 26 mmol/L (21-33) 04/26/17 07:50 Anion Gap 14 (10-20) 04/26/17 07:50 BUN 15 mg/dL (7-21) 04/26/17 07:50 Creatinine 0.9 mg/dL (0.7-1.2) 04/26/17 07:50 Est GFR ( Amer) > 60 04/26/17 07:50 Est GFR (Non-Af Amer) > 60 04/26/17 07:50 POC Glucose (mg/dL) 155 mg/dL (65-110) H 04/25/17 21:56 Random Glucose 136 mg/dL (70-110) H 04/26/17 07:50 Calcium 9.4 mg/dL (8.4-10.5) 04/26/17 07:50 Phosphorus 4.6 mg/dL (2.5-4.5) H 04/25/17 05:00 Magnesium 1.9 mg/dL (1.7-2.2) 04/25/17 05:00 Total Bilirubin 0.8 mg/dL (0.2-1.3) 04/26/17 07:50 AST 31 U/L (14-36) 04/26/17 07:50 ALT 44 U/L (7-56) 04/26/17 07:50 Alkaline Phosphatase 58 U/L (38-126) 04/26/17 07:50 Lactate Dehydrogenase 403 U/L (333-699) 04/24/17 21:39 Total Creatine Kinase 50 U/L (35-230) 04/24/17 21:39 Troponin I < 0.01 ng/mL 04/25/17 13:58 Total Protein 7.1 g/dL (5.8-8.3) 04/26/17 07:50 Albumin 4.5 g/dL (3.0-4.8) 04/26/17 07:50 Globulin 2.6 gm/dL 04/26/17 07:50 Albumin/Globulin Ratio 1.7 (1.1-1.8) 04/26/17 07:50 Triglycerides 135 mg/dL (35-160) 04/25/17 05:00 Cholesterol 106 mg/dL (130-200) L 04/25/17 05:00 LDL Cholesterol Direct 44 mg/dL (0-129) 04/25/17 05:00 HDL Cholesterol 44 mg/dL (29-60) 04/25/17 05:00 TSH 3rd Generation 0.88 mIU/mL (0.46-4.68) 04/25/17 07:34 - Hospital Course Hospital Course: his is a 71 yo F with PMH of [place], CAD s/p 3 stents, hyperlipidemia, hypertension, type 2 diabetes, myasthenia gravis, ITP, and cholecystectomy who presents to [facility] with complaint of burning chest pain for several hours. Patient describes pain as widespread across chest, resolved now at time of exam. Also reports intermittent belching concurrent with the chest pain, also now resolved. Denies association with PO intake, and reports minimal PO intake today in general, mainly snacks throughout the day. Denies radiation of the widespread chest pain, including to jaw, neck, or down arms. No shortness of breath, no nausea, no emesis, no focal weakness, no dysuria/hematuria, fevers/ chills, or acute changes in vision. Reports compliance with her home medications, no sick contacts. The patient was admitted for chest pain and to rule out ACS. While admitted the patient was seen by Cardiology. The patient was seen by Cardiology and recommended a Echo to be done as an inpatient and a nuclear stress test as an outpatient. We then determined the Echo could be done outpatient and the patient was expected to be discharged on 04/25/17, however the patient's blood pressure was in the 190's systolic prior to admission. The patient was given Norvasc and Hydralazine before her blood pressure decreased to 152 systolic. The patient was kept overnight for observation. The patient was again seen by Dr. Arteaga this morning and recommended the patient to follow up as an outpatient for the Echo and nuclear stress test. The patient was discharged today with instructions to follow up with PMD within one week of discharge, Dr. Arteaga within one week of discharge and given a two week prescription of Amlodipine 5mg Daily . Discharge Exam - Head Exam Head Exam: ATRAUMATIC, NORMAL INSPECTION, NORMOCEPHALIC - Eye Exam Eye Exam: EOMI, Normal appearance, PERRL. absent: Periorbital tenderness Pupil Exam: NORMAL ACCOMODATION, PERRL. absent: Irregular, Unequal - ENT Exam ENT Exam: Mucous Membranes Moist, Normal Exam, Normal Oropharynx. absent: TM's Normal Bilaterally - Neck Exam Neck exam: Normal Inspection - Respiratory Exam Respiratory Exam: Clear to PA & Lateral, NORMAL BREATHING PATTERN, UNREMARKABLE. absent: Prolonged Expiratory Phase, Respiratory Distress - Cardiovascular Exam Cardiovascular Exam: REGULAR RHYTHM, RRR, +S1, +S2. absent: Gallop, Rubs - GI/Abdominal Exam GI & Abdominal Exam: Normal Bowel Sounds, Unremarkable. absent: Hypoactive Bowel Sounds, Organomegaly - Extremities Exam Extremities exam: full ROM - Back Exam Back exam: NORMAL INSPECTION. absent: CVA tenderness (L), CVA tenderness (R), paraspinal tenderness - Neurological Exam Neurological exam: Alert, CN II-XII Intact, Normal Gait, Oriented x3, Reflexes Normal - Psychiatric Exam Psychiatric exam: Normal Affect, Normal Mood - Skin Skin Exam: Dry, Intact Discharge Plan - Discharge Medications Prescriptions: amLODIPine [Norvasc] 5 mg PO DAILY #14 tab - Follow Up Plan Condition: GOOD Disposition: HOME/ ROUTINE Instructions: Cardiac Stress Test (DC), Chest Pain (DC) Additional Instructions: Patient advised to followup with PMD within one week of discharge. Patient advised to follow up with Dr. Arteaga within one week of discharge. Patient given a script for OP echo and stress test to be done at Dr. Arteaga's office within one week of discharge. Patient advised to return to E.D. for any new or worsening symptoms. Referrals: Bob Saldana MD [Primary Care Provider] - <Lion Castellanos - Last Filed: 04/27/17 12:27> Provider - Provider Date of Admission: 04/25/17 18:23 Attending physician: Lion Castellanos MD Primary care physician: Bob Saldana MD Hospital Course - Lab Results Lab Results: Most Recent Lab Values WBC 7.5 10^3/ul (4.5-11.0) 04/26/17 07:50 RBC 4.18 10^6/uL (3.5-6.1) 04/26/17 07:50 Hgb 12.2 g/dL (12.0-16.0) 04/26/17 07:50 Hct 35.9 % (36.0-48.0) L 04/26/17 07:50 MCV 85.9 fl (80.0-105.0) 04/26/17 07:50 MCH 29.2 pg (25.0-35.0) 04/26/17 07:50 MCHC 34.0 g/dl (31.0-37.0) 04/26/17 07:50 RDW 12.7 % (11.5-14.5) 04/26/17 07:50 Plt Count 164 10^3/uL (120.0-450.0) 04/26/17 07:50 MPV 9.2 fl (7.0-11.0) 04/26/17 07:50 Gran % 59.7 % (50.0-68.0) 04/26/17 07:50 Lymph % (Auto) 31.2 % (22.0-35.0) 04/26/17 07:50 [place] % (Auto) 7.9 % (1.0-6.0) H 04/26/17 07:50 Eos % (Auto) 0.9 % (1.5-5.0) L 04/26/17 07:50 Baso % (Auto) 0.3 % (0.0-3.0) 04/26/17 07:50 Gran # 4.47 (1.4-6.5) 04/26/17 07:50 Lymph # 2.3 (1.2-3.4) 04/26/17 07:50 [place] # 0.6 (0.1-0.6) 04/26/17 07:50 Eos # 0.1 (0.0-0.7) 04/26/17 07:50 Baso # 0.02 K/mm3 (0.0-2.0) 04/26/17 07:50 PT 10.3 Seconds (9.9-11.8) 04/24/17 21:40 INR 0.95 (0.93-1.08) 04/24/17 21:40 APTT 23.1 Seconds (23.7-30.8) L 04/24/17 21:40 Sodium 132 mmol/L (132-148) 04/26/17 07:50 Potassium 4.4 mmol/L (3.6-5.0) 04/26/17 07:50 Chloride 96 mmol/L (95-110) 04/26/17 07:50 Carbon Dioxide 26 mmol/L (21-33) 04/26/17 07:50 Anion Gap 14 (10-20) 04/26/17 07:50 BUN 15 mg/dL (7-21) 04/26/17 07:50 Creatinine 0.9 mg/dL (0.7-1.2) 04/26/17 07:50 Est GFR ( Amer) > 60 04/26/17 07:50 Est GFR (Non-Af Amer) > 60 04/26/17 07:50 POC Glucose (mg/dL) 152 mg/dL (65-110) H 04/26/17 11:44 Random Glucose 136 mg/dL (70-110) H 04/26/17 07:50 Calcium 9.4 mg/dL (8.4-10.5) 04/26/17 07:50 Phosphorus 4.6 mg/dL (2.5-4.5) H 04/25/17 05:00 Magnesium 1.9 mg/dL (1.7-2.2) 04/25/17 05:00 Total Bilirubin 0.8 mg/dL (0.2-1.3) 04/26/17 07:50 AST 31 U/L (14-36) 04/26/17 07:50 ALT 44 U/L (7-56) 04/26/17 07:50 Alkaline Phosphatase 58 U/L (38-126) 04/26/17 07:50 Lactate Dehydrogenase 403 U/L (333-699) 04/24/17 21:39 Total Creatine Kinase 50 U/L (35-230) 04/24/17 21:39 Troponin I < 0.01 ng/mL 04/25/17 13:58 Total Protein 7.1 g/dL (5.8-8.3) 04/26/17 07:50 Albumin 4.5 g/dL (3.0-4.8) 04/26/17 07:50 Globulin 2.6 gm/dL 04/26/17 07:50 Albumin/Globulin Ratio 1.7 (1.1-1.8) 04/26/17 07:50 Triglycerides 135 mg/dL (35-160) 04/25/17 05:00 Cholesterol 106 mg/dL (130-200) L 04/25/17 05:00 LDL Cholesterol Direct 44 mg/dL (0-129) 04/25/17 05:00 HDL Cholesterol 44 mg/dL (29-60) 04/25/17 05:00 TSH 3rd Generation 0.88 mIU/mL (0.46-4.68) 04/25/17 07:34 Attending/Attestation - Attestation I have personally seen and examined this patient.: Yes I have fully participated in the care of the patient.: Yes I have reviewed all pertinent clinical information, including history, physical exam and plan: Yes Notes (Text): 04/27/17 12:24 Patient was seen and examined with director of medical staff services. Agreed with resident assessment and plan. 71 year old female with past medical history of CAD, hypertension, dyslipidemia and diabetes who presented with complaint of chest pain and elevated BP. Serial cardiac enzymes were negative and ACS was ruled out. Cardiology evaluation was appreciated, recommended out patient stress test. Patient blood pressure medications were adjusted, blood pressure is better controlled.She is on Diovan, metoprolol and Norvasc at the time of discharge. Management plan was discussed in detail with patient Education was provided.
== END 2017-04-26 14:57 | disposition home or self-care (01) | DRG 313 ==
LOC: ED 21:30 → ERH 22:43 → 2RSO 04-25 00:10 → OBSVTOIN 04-25 18:23
PROVIDERS: ADMIT Internal Medicine; ATTEND Internal Medicine
DX: R07.89 Other chest pain (principal); I25.10 Atherosclerotic heart disease of native coronary artery without angina pectoris; I25.2 Old myocardial infarction; D69.3 Immune thrombocytopenic purpura; G70.00 Myasthenia gravis without (acute) exacerbation; E11.9 Type 2 diabetes mellitus without complications; I10 Essential (primary) hypertension; J45.909 Unspecified asthma, uncomplicated; E78.5 Hyperlipidemia, unspecified; E03.9 Hypothyroidism, unspecified; M54.9 Dorsalgia, unspecified; Z85.828 Personal history of other malignant neoplasm of skin; Z79.02 Long term (current) use of antithrombotics/antiplatelets; Z90.49 Acquired absence of other specified parts of digestive tract; Z90.710 Acquired absence of both cervix and uterus; Z95.5 Presence of coronary angioplasty implant and graft; Z79.82 Long term (current) use of aspirin; Z79.899 Other long term (current) drug therapy

== ENCOUNTER 2017-04-29 21:12 | Inpatient (IN) | payer MEDICARE, OTHER ==
[2017-04-29 21:41] LABS: ALB/GLOB RATIO 1.6 (1.1-1.8); ALKALINE PHOSPHATASE 65 U/L (38-126); ALT/SGPT 39 U/L (7-56); AST/SGOT 37 U/L (14-36); BILIRUBIN,TOTAL 0.4 mg/dL (0.2-1.3); BLOOD UREA NITROGEN 19 mg/dL (7-21); CARBON DIOXIDE 25 mmol/L (21-33); CHLORIDE 97 mmol/L (98-107); GFR AFRICAN-AMERICAN > 60; GLUCOSE,RANDOM 176 mg/dL (70-110); POTASSIUM 4.6 mmol/L (3.6-5.0); SODIUM 132 mmol/L (132-148); TOTAL PROTEIN 7.3 g/dL (5.8-8.3)
--- NOTE | 2017-04-29 21:52 | ED PDOC ---
Arrival/HPI - General Time Seen by Provider: 04/29/17 21:13 Historian: Patient - History of Present Illness Narrative History of Present Illness (Text): 04/29/17 21:25 Angie Narvaez is a 71 year old female, whose past medical history includes [place], CAD status post 3 stents, hyperlipidemia, hypertension, type 2 diabetes, myasthenia gravis, ITP, and cholecystectomy, who presents to the emergency department complaining of multiple intermittent episodes of chest pain for a few hours. Patient came to the emergency department on 04/25/17 for chest pain, was discharged after trop x 3 negative, had positive outpatient stress test and was scheduled for cath on wednesday. Patient describes her symptoms to be a diffuse burning sensation to her chest that radiates to her shoulder with associated tingling and a "bubble behind her left breast". Patient states that she took Nitro which brought some relief but symptoms came back and she took Nitro again with 2 325mg Aspirin tablets after latest chest pain episode. At present in the emergency department, patient is pain-free. PMD: Dr. Rosaura Saldana Mill Controller: Dr. Mady Arteaga Time/Duration: 4-6 hours Symptom Onset: Gradual Symptom Course: Unchanged Quality: Burning Severity Level: Moderate Activities at Onset: Light Context: Home Past Medical History - Provider Review Nursing Documentation Reviewed: Yes - Infectious Disease Hx of Infectious Diseases: None - Cardiac Hx Pacemaker: No - Pulmonary Hx Respiratory Disorders: Yes Hx Asthma: Yes Hx Bronchitis: Yes - Neurological Hx Paralysis: No - HEENT Hx HEENT Disorder: Yes (reading glasses) Hx Cataracts: Yes - Renal Hx Renal Disorder: No (denies) - Endocrine/Metabolic Hx Diabetes Mellitus Type 2: Yes Hx Hypothyroidism: Yes - Hematological/Oncological Hx Blood Transfusions: Yes Hx Blood Transfusion Reaction: No - Integumentary Hx Dermatological Disorder: Yes Hx Basal Cell Carcinoma: Yes - Musculoskeletal/Rheumatological Hx Musculoskeletal Disorders: Yes - Gastrointestinal Hx Gastrointestinal Disorders: No - Genitourinary/Gynecological Hx Genitourinary Disorders: No - Psychiatric Hx Emotional Abuse: No Hx Physical Abuse: No Hx Substance Use: No - Surgical History Hx Cholecystectomy: Yes Hx Coronary Stent: Yes (x3) Hx Hysterectomy: Yes Hx Orthopedic Surgery: Yes (right knee) - Anesthesia Hx Anesthesia Reactions: No Hx Malignant Hyperthermia: No - Suicidal Assessment Feels Threatened In Home Enviroment: No Family/Social History - Physician Review Nursing Documentation Reviewed: Yes Family/Social History: No Known Family HX Smoking Status: Never Smoked Hx Alcohol Use: No Hx Substance Use: No Hx Substance Use Treatment: No Allergies/Home Meds Allergies/Adverse Reactions: Allergies clarithromycin [From Biaxin] Allergy (Severe, Verified 04/24/17 21:40) ANAPHYLAXIS glucosamine Allergy (Severe, Verified 04/24/17 21:40) ANAPHYLAXIS Home Medications: Home Meds Medication Instructions Recorded Confirmed MetFORMIN [glucOPHAGE] 500 mg PO TID 06/05/15 04/29/17 Clopidogrel [Plavix] 75 mg PO DAILY 06/08/15 04/29/17 Metoprolol Succinate [Metoprolol 25 mg PO DAILY 06/08/15 04/29/17 Succinate Xl] Rosuvastatin Calcium [Crestor] 10 mg PO DAILY 06/08/15 04/29/17 Aspirin [Aspirin] 81 mg PO DAILY 06/10/15 04/29/17 Cholecalciferol (Vitamin D3) 1,000 unit PO DAILY 04/03/16 04/29/17 [Vitamin D3] Levothyroxine Sodium [Levothroid] 137 mcg PO QAM 04/03/16 04/29/17 Magnesium Oxide [Magnesium] 400 mg PO DAILY 04/03/16 04/29/17 Multivit-Min/FA/Lycopen/Lutein 1 tab PO DAILY 04/03/16 04/29/17 [Centrum Silver Tablet] Ubidecarenone [Coq-10] 200 mg PO DAILY 04/03/16 04/29/17 Valsartan [Diovan] 80 mg PO BID 04/03/16 04/29/17 Eltrombopag Olamine [Promacta] 1 tab PO DAILY 04/24/17 04/29/17 Review of Systems - Physician Review All systems were reviewed & negative as marked: Yes - Review of Systems Constitutional: absent: Fevers, Night Sweats Eyes: absent: Vision Changes ENT: absent: Hearing Changes Respiratory: absent: SOB, Cough Cardiovascular: Chest Pain. absent: Palpitations, Edema, Calf Pain, KIM, Orthopnea, Syncope Gastrointestinal: absent: Abdominal Pain, Constipation, Diarrhea, Nausea, Vomiting Genitourinary Female: absent: Dysuria, Frequency Musculoskeletal: absent: Arthralgias, Back Pain Skin: absent: Rash, Pruritis Neurological: absent: Headache, Dizziness Endocrine: absent: Diaphoresis Hemo/Lymphatic: absent: Adenopathy Psychiatric: absent: Depression Physical Exam Vital Signs Reviewed: Yes Vital Signs Temp Pulse Resp BP Pulse Ox 04/29/17 21:12 98.3 F 70 16 145/80 99 Temperature: Afebrile Blood Pressure: Normal Pulse: Regular Respiratory Rate: Normal Appearance: Positive for: Well-Appearing, Non-Toxic, Comfortable Pain Distress: None Mental Status: Positive for: Alert and Oriented X 3 - Systems Exam Head: Present: Atraumatic, Normocephalic Pupils: Present: PERRL Extroacular Muscles: Present: EOMI Conjunctiva: Present: Normal Mouth: Present: Moist Mucous Membranes Neck: Present: Normal Range of Motion Respiratory/Chest: Present: Clear to Auscultation, Good Air Exchange. No: Respiratory Distress, Accessory Muscle Use Cardiovascular: Present: Regular Rate and Rhythm, Normal S1, S2. No: Murmurs Abdomen: Present: Normal Bowel Sounds. No: Tenderness, Distention, Peritoneal Signs Back: Present: Normal Inspection Upper Extremity: Present: Normal Inspection. No: Cyanosis, Edema Lower Extremity: Present: Normal Inspection. No: Edema Neurological: Present: GCS=15, CN II-XII Intact, Speech Normal Skin: Present: Warm, Dry, Normal Color. No: Rashes Psychiatric: Present: Alert, Oriented x 3, Normal Insight, Normal Concentration Medical Decision Making ED Course and Treatment: 04/29/17 21:25 Impression: 71 year old female complaining of multiple intermittent episodes of chest pain described as a diffuse burning sensation with associated tingling for a few hours. Differential Diagnosis included but are not limited to: Plan: -- Chest X-ray -- Labs -- Reassess and disposition Prior Visits: Notes and results from previous visits were reviewed. Patient last seen in the ED on 04/25/17 for chest pain. Patient was admitted to hospitalist care for further evaluation. Progress Notes: 04/29/17 22:01 EKG shows NSR at 71bpm with normal intervals and no ST changes. Cxray negative. Trop x 1 negative. Had aspirin at home. No current chest pain. Spoke to Dr. Cuellar and will transfer to tele observation with Dr. Arteaga on consult. 04/29/17 22:[address] Elkind, who is aware and recommends heparin bolus, and drip. - Lab Interpretations Lab Results: 04/29/17 21:20 Lab Results 04/29/17 21:20: Sodium 132, Potassium 4.6, Chloride 97 L, Carbon Dioxide 25, Anion Gap 15, BUN 19, Creatinine 1.0, Est GFR ( Amer) > 60, Est GFR (Non- Af Amer) 55, Random Glucose 176 H, Calcium 9.0, Total Bilirubin 0.4, AST 37 H, ALT 39, Alkaline Phosphatase 65, Total Creatine Kinase 45, Troponin I < 0.01, Total Protein 7.3, Albumin 4.5, Globulin 2.8, Albumin/Globulin Ratio 1.6 04/29/17 21:20: PT 10.6, INR 0.97, APTT 25.7 I have reviewed the lab results: Yes - RAD Interpretation Radiology Orders: 04/29/17 21:16 CHEST PORTABLE [RAD] Stat - Medication Orders Current Medication Orders: Amlodipine Besylate (Norvasc) 5 mg PO DAILY [facility] Aspirin (Ecotrin) 81 mg PO DAILY [facility] Clopidogrel Bisulfate (Plavix) 75 mg PO DAILY [facility] Heparin Sodium/Dextrose (Heparin 25,000 Units/250ml In D5w) 25,000 units in 250 mls @ 8.655 mls/hr IV .Q24H RUBENS; 12 UNITS/KG/HR PRN Reason: Protocol Last Admin: 04/29/17 23:05 Dose: 12 units/kg/hr, 8.655 mls/hr eMAR Start Stop Document 04/29/17 23:05 DELMER (Rec: 04/29/17 23:05 DELMER [id number]) Intravenous Solution Start Date 04/29/17 Start Time 23:05 Titration Intervention Document 04/29/17 23:05 DELMER (Rec: 04/29/17 23:05 DELMER [id number]) Titration Intake Waste Amount 0 Container Volume 250 Titration Dosing Titration Dose 12 IV Rate 8.655 Intake/Decrease Started Insulin Human Lispro (Humalog Low) 0 units SC ACHS [facility] PRN Reason: Protocol Magnesium Oxide (Mag-Ox) 400 mg PO DAILY [facility] Metoprolol Succinate (Toprol Xl) 25 mg PO DAILY [facility] Non-Formulary Medication (Cholecalciferol (Vitamin D3) [Vitamin D3]) 1,000 unit PO DAILY [facility] Non-Formulary Medication (Eltrombopag Olamine [Promacta]) 1 tab PO DAILY [facility] Non-Formulary Medication (Levothyroxine Sodium [Levothroid]) 137 mcg PO QAM [facility] Non-Formulary Medication (Multivit-Min/Fa/Lycopen/Lutein [Centrum Silver Tablet] ) 1 tab PO DAILY [facility] Non-Formulary Medication (Rosuvastatin Calcium [Crestor]) 10 mg PO DAILY [facility] Non-Formulary Medication (Ubidecarenone [Coq-10]) 200 mg PO DAILY [facility] Non-Formulary Medication (Valsartan [Diovan]) 80 mg PO BID [facility] Discontinued Medications Heparin Sodium (Porcine) (Heparin) 5,000 units IV ONCE ONE PRN Reason: Protocol Stop: 04/29/17 22:21 Last Admin: 04/29/17 23:06 Dose: 5,000 units eMAR Start Stop Document 04/29/17 23:06 DELMER (Rec: 04/29/17 23:06 DELMER [id number]) Intravenous Solution Start Date 04/29/17 Start Time 23:06 End Date 04/29/17 End time 23:07 Total Infusion Time 1 - Scribe Statement The provider has reviewed the documentation as recorded by the Maria Callahan Provider Scribe Attestation: All medical record entries made by the Scribe were at my direction and personally dictated by me. I have reviewed the chart and agree that the record accurately reflects my personal performance of the history, physical exam, medical decision making, and the department course for this patient. I have also personally directed, reviewed, and agree with the discharge instructions and disposition. Disposition/Present on Arrival - Present on Arrival Any Indicators Present on Arrival: No History of DVT/PE: No History of Uncontrolled Diabetes: No Urinary Catheter: No History of Decub. Ulcer: No History Surgical Site Infection Following: None - Disposition Have Diagnosis and Disposition been Completed?: Yes Diagnosis: Unstable angina Disposition: HOSPITALIZED Disposition Time: 22:02 Patient Plan: Observation Condition: FAIR
[2017-04-29 21:53] LABS: TROPONIN I < 0.01 ng/mL
[2017-04-29 21:54] LABS: INR 0.97 (0.93-1.08); PARTIAL THROMBOPLASTIN TIME 25.7 Seconds (25.1-36.5)
[2017-04-29 22:03] LABS: BASO # 0.02 K/mm3 (0.0-2.0); BASO % 0.2 % (0.0-3.0); EOS # 0.1 (0.0-0.7); EOS % 1.2 % (1.5-5.0); GRAN # 4.86 (1.4-6.5); GRAN % 52.1 % (50.0-68.0); HEMATOCRIT 34.8 % (36.0-48.0); LYMPH # 3.8 (1.2-3.4); LYMPH % 40.3 % (22.0-35.0); MEAN CELL VOLUME 86.1 fl (80.0-105.0); MEAN CORPUSCULAR HEMOGLOBIN 30.2 pg (25.0-35.0); MEAN CORPUSCULAR HGB CONC 35.1 g/dl (31.0-37.0); MEAN PLATELET VOLUME 9.7 fl (7.0-11.0); MONO # 0.6 (0.1-0.6); MONO % 6.2 % (1.0-6.0); RED CELL DISTRIBUTION WIDTH 12.5 % (11.5-14.5); WHITE BLOOD COUNT 9.3 10^3/ul (4.5-11.0)
[2017-04-29 22:21] VITALS: BMI 27.3
[2017-04-29] MEDS ORDERED: Heparin 25,000units in D5W 25,000 UNITS/250 ML BAG IV SCH (22:30)
--- NOTE | 2017-04-30 03:30 | CP.PCM.HP ---
<NICOLE TAN - Last Filed: 04/30/17 04:04> History of Present Illness - History of Present Illness History of Present Illness: CC: Chest Pain Pt is a 71 yo female with PMH of CA, CAD s/p 3 stents, hyperlipidemia, hypertension, type 2 diabetes, myasthenia gravis, hypothyroidism and ITP presents to [facility] [place] with complaint of burning chest pain. Pt was recently admitted for CP on 04/24/17 and evaluated for acute coronary syndrome. Pt was seen by Dr. Arteaga and it was determined that she could be discharged home and have Echo and stress test as an outpatient. Pt underwent stress test this week and results were abnormal. Pt was scheduled to have cardiac catherization at a later date. However, today patient complained burning chest pain with radiation to back at rest. Pt took 3 nitroglycerin tablets and 2 ASA 325 mg, which alleviated her symptoms somewhat. Pt contacted Dr. Arteaga, who instructed her to go to the ED for cardiac catherization tomorrow. In the ED, pt denied CP, SOB , n/v/d, chills, fever, abdominal pain, TERRAZAS, fatigue, dizziness, or dysuria. PMH: CA, CAD s/p 3 stents, hyperlipidemia, hypertension, type 2 diabetes, myasthenia gravis, ITP, basal cell carcinoma, hypothyroidism PSH: Cholecystectomy, Cardiac cath, cardiac stents x3, R-knee arthroscopy FHx: DM2, CAD (multiple family members) All: Clarithromycine, glucosamine SHx: Denied tobacco, EtOH, and illicit drug use Meds: Reviewed as per SEP PMD: [place]perl Heme/Onc: Anshu Present on Admission - Present on Admission Any Indicators Present on Admission: No Review of Systems - Review of Systems Review of Systems: 12 point ROS reviewed and is negative other than what is stated in HPI. Past Patient History - Infectious Disease Hx of Infectious Diseases: None - Past Social History Smoking Status: Never Smoked - CARDIAC Hx Pacemaker: No - PULMONARY Hx Respiratory Disorders: Yes Hx Asthma: Yes Hx Bronchitis: Yes - NEUROLOGICAL Hx Paralysis: No - HEENT Hx HEENT Problems: Yes (reading glasses) Hx Cataracts: Yes - RENAL Hx Chronic Kidney Disease: No (denies) - ENDOCRINE/METABOLIC Hx Diabetes Mellitus Type 2: Yes Hx Hypothyroidism: Yes - HEMATOLOGICAL/ONCOLOGICAL Hx Blood Transfusions: Yes Hx Blood Transfusion Reaction: No - INTEGUMENTARY Hx Dermatological Problems: Yes Hx Basil Cell: Yes - MUSCULOSKELETAL/RHEUMATOLOGICAL Hx Musculoskeletal Disorders: Yes - GASTROINTESTINAL Hx Gastrointestinal Disorders: No - GENITOURINARY/GYNECOLOGICAL Hx Genitourinary Disorders: No - PSYCHIATRIC Hx Emotional Abuse: No Hx Physical Abuse: No Hx Substance Use: No - SURGICAL HISTORY Hx Cholecystectomy: Yes Hx Coronary Stent: Yes (x3) Hx Hysterectomy: Yes Hx Orthopedic Surgery: Yes (right knee) - ANESTHESIA Hx Anesthesia Reactions: No Hx Malignant Hyperthermia: No Meds Allergies/Adverse Reactions: Allergies Allergy/AdvReac Type Severity Reaction Status Date / Time clarithromycin [From Biaxin] Allergy Severe ANAPHYLAXIS Verified 04/24/17 21:40 glucosamine Allergy Severe ANAPHYLAXIS Verified 04/24/17 21:40 Physical Exam - Head Exam Head Exam: ATRAUMATIC, NORMOCEPHALIC - Eye Exam Eye Exam: EOMI, PERRL - ENT Exam ENT Exam: Mucous Membranes Moist - Neck Exam Neck exam: Positive for: Full Rom. Negative for: Lymphadenopathy, Tenderness, Thyromegaly - Respiratory Exam Respiratory Exam: Clear to Auscultation Bilateral. absent: Rales, Rhonchi, Wheezes - Cardiovascular Exam Cardiovascular Exam: RRR, +S1, +S2. absent: Diastolic murmur, Gallop, Rubs, Systolic Murmur - GI/Abdominal Exam GI & Abdominal Exam: Soft. absent: Distended, Guarding, Rebound - Extremities Exam Extremities exam: Positive for: normal inspection - Neurological Exam Neurological exam: Alert, Oriented x3 - Psychiatric Exam Psychiatric exam: Normal Affect, Normal Mood - Skin Skin Exam: Dry, Intact, Normal Color, Warm Results - Vital Signs Recent Vital Signs: Last Vital Signs Temp 98 F 04/30/17 00:01 Pulse 66 04/30/17 02:00 Resp 18 04/30/17 00:01 BP 164/86 H 04/30/17 00:01 Pulse Ox 98 04/30/17 00:01 - Labs Result Diagrams: 04/29/17 21:59 04/29/17 21:20 Labs: Laboratory Results - last 24 hr 04/29/17 21:59 WBC 9.3 D RBC 4.04 Hgb 12.2 Hct 34.8 L MCV 86.1 MCH 30.2 MCHC 35.1 RDW 12.5 Plt Count 197 MPV 9.7 Gran % 52.1 Lymph % (Auto) 40.3 H Preston % (Auto) 6.2 H Eos % (Auto) 1.2 L Baso % (Auto) 0.2 Gran # 4.86 Lymph # 3.8 H Preston # 0.6 Eos # 0.1 Baso # 0.02 Assessment & Plan - Assessment and Plan (Free Text) Assessment: 71 yo female with PMH of CA, CAD s/p 3 stents, hyperlipidemia, hypertension, type 2 diabetes, myasthenia gravis, and ITP presents with chest pain and abnormal stress test will be admitted for cardiac catherization in the AM to rule out ACS. Plan: 1. Chest Pain r/o ACS - Cardiac catherization in the AM NPO after midnight - EKG shows NSR at 71bpm with normal intervals and no ST changes - CXR negative - Troponin negative x1, f/u trend x2 - EKG in AM - Heparin Bolus then Drip - Cont ASA, Plavix, Lopressor 2. HTN - Cont home med: Norvasc, Cozaar 3. DM - ISS - Accuchecks ACHS 4. H/O Hypothyroidism - Cont home med: Levothyroxine - Pt prefers to use her own med from home 5. H/O Thrombocytopenia - Cont home med: Promacta - Pt perfers to use her own med from home GI/DVT PPx - Protonix - DVT PPx covered by Heparin Pt seen and discussed in detail with Dr. Cuellar. Silviano Tan, PGY1 <Josette Cuellar - Last Filed: 04/30/17 05:40> Results - Vital Signs Recent Vital Signs: Last Vital Signs Temp 98 F 04/30/17 00:01 Pulse 66 04/30/17 02:00 Resp 18 04/30/17 00:01 BP 164/86 H 04/30/17 00:01 Pulse Ox 98 04/30/17 00:01 - Labs Result Diagrams: 04/29/17 21:59 04/29/17 21:20 Labs: Laboratory Results - last 24 hr 04/29/17 21:59 WBC 9.3 D RBC 4.04 Hgb 12.2 Hct 34.8 L MCV 86.1 MCH 30.2 MCHC 35.1 RDW 12.5 Plt Count 197 MPV 9.7 Gran % 52.1 Lymph % (Auto) 40.3 H Preston % (Auto) 6.2 H Eos % (Auto) 1.2 L Baso % (Auto) 0.2 Gran # 4.86 Lymph # 3.8 H Preston # 0.6 Eos # 0.1 Baso # 0.02 Attending/Attestation - Attestation I have personally seen and examined this patient.: Yes I have fully participated in the care of the patient.: Yes I have reviewed all pertinent clinical information: Yes Notes (Text): 04/30/17 05:28 Addendum:NTG SL in addition to other meds. 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
[2017-04-30 05:23] LABS: HEMATOCRIT 35.4 % (36.0-48.0); MEAN CELL VOLUME 85.3 fl (80.0-105.0); MEAN CORPUSCULAR HEMOGLOBIN 29.9 pg (25.0-35.0); MEAN PLATELET VOLUME 9.5 fl (7.0-11.0); RED CELL DISTRIBUTION WIDTH 12.5 % (11.5-14.5); WHITE BLOOD COUNT 7.8 10^3/ul (4.5-11.0)
[2017-04-30] MEDS: Pantoprazole 40 mg EC Tab PO SCH (05:24)
[2017-04-30 05:37] LABS: ALB/GLOB RATIO 1.7 (1.1-1.8); ALKALINE PHOSPHATASE 63 U/L (38-126); ALT/SGPT 44 U/L (7-56); AST/SGOT 30 U/L (14-36); BILIRUBIN,TOTAL 0.7 mg/dL (0.2-1.3); BLOOD UREA NITROGEN 16 mg/dL (7-21); CALCIUM 9.4 mg/dL (8.4-10.5); CARBON DIOXIDE 26 mmol/L (21-33); CHLORIDE 98 mmol/L (95-110); GFR AFRICAN-AMERICAN > 60; GLUCOSE,RANDOM 116 mg/dL (70-110); PHOSPHOROUS 4.7 mg/dL (2.5-4.5); POTASSIUM 4.1 mmol/L (3.6-5.0); SODIUM 135 mmol/L (132-148); TOTAL PROTEIN 7.1 g/dL (5.8-8.3)
[2017-04-30 06:07] LABS: TROPONIN I < 0.01 ng/mL
[2017-04-30] MEDS ORDERED: LEVOTHYROXINE SODIUM 137 MCG PO SCH ×2 (06:47→10:00)
[2017-04-30] MEDS: SYNTHROID 137 MCG PO SCH (07:06)
[2017-04-30] MEDS: Insulin Lispro (humaLOG) LOW Coverage SC SCH ×4 (08:43→22:50)
--- NOTE | 2017-04-30 09:00 | RAD ---
HISTORY: chest pain COMPARISON: 04/24/2017 FINDINGS: LUNGS: No active pulmonary disease. PLEURA: No significant pleural effusion identified, no pneumothorax apparent. CARDIOVASCULAR: Normal. OSSEOUS STRUCTURES: No significant abnormalities. VISUALIZED UPPER ABDOMEN: Normal. OTHER FINDINGS: None. IMPRESSION: No active disease.
[2017-04-30] MEDS: Metoprolol Succinate 25 mg XL Tab PO SCH (09:38)
[2017-04-30] MEDS ORDERED: UBIDECARENONE 200 MG PO SCH ×2 (10:00→22:00)
[2017-04-30] MEDS ORDERED: Multivitamin With Minerals Tab PO SCH ×2 (10:00→17:00)
[2017-04-30] MEDS ORDERED: ELTROMBOPAG OLAMINE PO SCH (10:00)
[2017-04-30] MEDS ORDERED: Magnesium Oxide 400 mg Tab UD PO SCH ×2 (10:00→22:00)
[2017-04-30] MEDS: PROMACTA 50 MG PO SCH (11:24)
[2017-04-30 12:50] LABS: TROPONIN I < 0.01 ng/mL
[2017-04-30] MEDS ORDERED: Lidocaine 2% Inj (20ml) ONE (14:07)
[2017-04-30] MEDS ORDERED: Phenylephrine 10 mg/ml Inj ONE (14:08)
[2017-04-30] MEDS ORDERED: Iodixanol 320 MG/ML 200 ML BOTTLE IV ONE (14:08)
[2017-04-30] MEDS ORDERED: Iohexol 350mgl/ml 50 ML ONE (14:08)
[2017-04-30] MEDS ORDERED: Nitroglycerin 50mg in D5W 0 MG/0 ML BOTTLE IV ONE (14:08)
[2017-04-30] MEDS ORDERED: Iodixanol 320 MG/ML 100 ML BOTTLE IV ONE (14:08)
[2017-04-30] MEDS ORDERED: Midazolam 2 MG/2 ML VIAL ONE ×2 (15:24→15:49)
--- NOTE | 2017-04-30 15:54 | CON ---
DATE: 04/30/2017 INDICATIONS: Recurring chest pain. HISTORY OF PRESENT ILLNESS: This is a 71-year-old woman known to me admitted yesterday evening through the emergency room, which she developed recurring burning type chest pain at home initially responsive to sublingual nitroglycerin, but it recurred and did not respond to second sublingual nitroglycerin and 2 aspirin tablets. She also noted numbness and tingling in her hands. In the emergency room, the symptoms subsided. There were no acute changes on her EKG and 2 troponins have been negative. She is currently on telemetry resting in bed comfortably without chest pain, although she does note a chronic back discomfort. She was admitted recently with similar symptoms and had no evidence of myocardial infarction. A nuclear stress test followed this which was abnormal showing a larger defect and cardiac catheterization was scheduled. There is no orthopnea, PND, syncope, presyncope, lightheadedness, dizziness, vertigo, palpitations, edema, claudication, fever, chills, cough, sputum production, hemoptysis, abdominal pain, nausea, vomiting, diarrhea, constipation, or melena. PAST MEDICAL HISTORY: Notable for coronary artery disease. She suffered a myocardial infarction and underwent coronary intervention in 2015 with stents placed in the LAD and the right coronary artery. She has a history of hypertension, hyperlipidemia, diabetes, myasthenia gravis, ITP, and gallbladder surgery. There is no history of rheumatic fever, congestive heart failure, arrhythmia, stroke, TIA, or gout. MEDICATIONS AT THE TIME OF ADMISSION: Include aspirin, metformin, multivitamin, CoQ10, Crestor, valsartan, magnesium supplementation, metoprolol, Norvasc, Plavix, Promacta, and vitamin D3. ALLERGIES: SHE NOTES ALLERGIES TO BIAXIN AND GLUCOSAMINE. SOCIAL HISTORY: She lives at home with her . She is ambulatory. She does not smoke cigarettes. She does not drink alcohol significantly. FAMILY HISTORY: Noncontributory. REVIEW OF SYSTEMS: Ten-point review of systems is otherwise unremarkable except as noted above. PHYSICAL EXAMINATION: GENERAL: She is a well-developed woman, lying in bed on telemetry, in no acute distress. VITAL SIGNS: Notable for sinus rhythm at 74 beats per minute. She is afebrile. Blood pressure 157/91, respirations 16 to 20, and O2 saturation 98% to 99% on room air. HEENT: Reveals no neck vein distention, thyromegaly or carotid bruits. Mucous membranes moist. Conjunctivae pink. Neck is supple. LUNGS: Crow clear throughout. HEART: Reveals normal first and second heart sounds. ABDOMEN: Soft. Bowel sounds present. No mass, organomegaly, tenderness, rebound or guarding. No CVA tenderness. No palpable abdominal aortic aneurysm. EXTREMITIES: Revealed no cyanosis, clubbing or edema. NEUROLOGIC: She is awake, alert, and oriented. SKIN: Warm and dry. No rash or cellulitis. PSYCHIATRIC: Normal as to mood and affect. LABORATORY AND IMAGING: A chest x-ray is portable study is not interpreted yet. Lung crow are clear by my reading. No CHF, infiltrate, or effusion. EKG demonstrates regular sinus rhythm. No acute changes. White count and platelet count normal. Hemoglobin 12.4 and hematocrit 35.4. PT/INR and PTT unremarkable initially; on heparin PTT 53.4. Electrolytes, BUN, creatinine, blood sugar, magnesium, and LFTs are unremarkable. Two CK and 2 troponins are negative. IMPRESSION: Angie Narvaez is a 71-year-old woman experiencing recurring chest pain in the setting of known coronary artery disease, status post myocardial infarction, and coronary stenting of the right coronary artery and left anterior descending in 2014 with an abnormal nuclear stress test recently, admitted with recurring burning chest pain, not responsive to nitroglycerin. PLAN: At this time, she is admitted to telemetry. She is on IV heparin. She is getting her usual cardiac medications including aspirin, Plavix, losartan as a replacement for Diovan, Lipitor as a replacement for Crestor, Norvasc, Protonix, and metoprolol. She is also getting vitamin D, CoQ10, insulin coverage, Promacta, and Synthroid. I will make arrangements for her to have a cardiac catheterization, probably later this afternoon. Additional recommendations will be based on the results of that test. She will keep us informed of any symptoms. We will monitor EKG's and enzymes, I's and O's. We will check stool for occult blood. She can be out of bed to a chair. De Arteaga MD [facility] # [id number] [email or web address]
[2017-04-30] MEDS ORDERED: Sodium Chloride 0.9% 1,000 ML IV SCH ×2 (16:00→17:30)
[2017-04-30] MEDS ORDERED: CRESTOR 5 MG PO SCH (17:00)
[2017-04-30] MEDS ORDERED: Non Formulary Medication (Ubidecarenone [Coq-10] 200 MG) PO SCH (17:00)
--- NOTE | 2017-04-30 17:16 | CARDCATH ---
PROCEDURE DATE: 04/30/2017 PROCEDURES: 1. Selective left and right coronary angiography. 2. Left ventriculography. 3. Right femoral arteriography. 4. Percutaneous coronary intervention of right coronary artery with drug-eluting stent. 5. Mynx deployment. HISTORY: This is a 71-year-old woman with known coronary artery disease who underwent recent stress test showing an evidence of inferolateral ischemia. She presents to the emergency room with worsening chest discomfort. She was admitted and catheterization was advised. INDICATION: Acute coronary syndrome. FINDINGS: Hemodynamics; the aortic pressure was 140/70 with left ventricular pressure of 140/18. CORONARY ANATOMY: 1. The left mainstem was normal. 2. The left anterior ascending artery had a widely patent stent in its early mid segment as well as in the early distal segment. The diagonal branches had mild diffuse disease. 3. The left circumflex artery gave rise to two fairly small obtuse marginal branches with had minimal disease. 4. The right coronary artery was dominant. The previously placed stent in mid portion had the focal 70% stenosis present within the stent. Distal vessel had mild irregularities. LEFT VENTRICULOGRAPHY: A left ventriculogram was performed with hand injection only in the [place] projection. This revealed normal wall motion with an ejection fraction of 60%. CORONARY INTERVENTION: Given the above findings, attempted PCI of the artery was then performed. 4000 units of intravenous heparin and the ACT was greater than 370 seconds during the procedure, and the lesion in the RCA was successfully crossed with the use of a [place] wire. The lesion was then pre-dilated with the use of a 2.75 x 9 mm noncompliant balloon for 30 seconds. Following this, the balloon catheter was removed and a 3.0 x 12 mm Resolute drug-eluting stent was advanced and deployed at the side of the restenosis. This was inflated to 12 atmosphere for 45 seconds. There was 0% residual stenosis following the intervention. RAINA grade 3 flow was present before and after the intervention. RIGHT FEMORAL ARTERIOGRAPHY: A right femoral arteriogram was performed in the [place] projection. This revealed no evidence of significant disease. The puncture site appeared to be at the origin of the superficial femoral artery branch. The puncture site was then closed with deployment of a Mynx device. CONCLUSIONS: 1. Significant RCA in-stent restenosis. 2. Patent LAD stents. 3. Normal LV systolic function. 4. Successful PCI of RCA with drug-eluting stent. RECOMMENDATIONS: Aspirin and Plavix therapy will be continued for at least one year. Rest of her cardiac medications will be continued, unchanged. Continue risk factor control as advised. Geovanny Johnson MD cc: Bob Saldana MD
[2017-04-30] MEDS ORDERED: Morphine 2 mg/ml ISec IVP ONE ×2 (19:16→19:30)
[2017-04-30] MEDS ORDERED: Morphine 2 mg/ml ISec ONE (19:22)
--- NOTE | 2017-04-30 21:26 | CP.PCM.PN ---
<Aryan Leslie - Last Filed: 04/30/17 21:23> Subjective - Date & Time of Evaluation Date of Evaluation: 04/30/17 Time of Evaluation: 19:00 - Subjective Subjective: Patient was complaining of burning and pain that was located in the chest and was non radiating. She also complained of a headache. She denied any SOB, abdominal pain, nausea vomiting, or any other complains. Objective - Vital Signs/Intake and Output Vital Signs (last 24 hours): Temp Pulse Resp BP Pulse Ox 98.4 F 61 18 110/65 100 04/30/17 16:35 04/30/17 20:25 04/30/17 20:25 04/30/17 20:25 04/30/17 18:48 - Medications Medications: Current Medications Acetaminophen (Tylenol 325mg Tab) 650 mg PO Q4H PRN PRN Reason: Pain, Mild (1-3) Alprazolam (Xanax) 0.25 mg PO BID PRN PRN Reason: Anxiety Stop: 05/07/17 15:58 Amlodipine Besylate (Norvasc) 5 mg PO DAILY [facility] Last Admin: 04/30/17 09:16 Dose: Not Given Aspirin (Ecotrin) 81 mg PO DAILY [facility] Last Admin: 04/30/17 09:37 Dose: 81 mg Cholecalciferol (Vitamin D) 1,000 iu PO DAILY [facility] Last Admin: 04/30/17 09:38 Dose: 1,000 iu Clonidine HCl (Catapres) 0.1 mg PO Q6H PRN PRN Reason: Q6H PRN: SBP>160 Last Admin: 04/30/17 17:36 Dose: 0.1 mg Clopidogrel Bisulfate (Plavix) 75 mg PO DAILY [facility] Last Admin: 04/30/17 09:38 Dose: 75 mg Docusate Sodium (Colace) 100 mg PO BID [facility] Last Admin: 04/30/17 17:36 Dose: 100 mg Home Med (Home Med) 1 unit PO 0600 [facility] Last Admin: 04/30/17 07:06 Dose: 1 unit Home Med (Home Med) 1 unit PO DAILY [facility] Last Admin: 04/30/17 11:24 Dose: 1 unit Home Med (Home Med) 1 unit PO DIN [facility] Last Admin: 04/30/17 19:03 Dose: 1 unit Sodium Chloride (Sodium Chloride 0.9%) 1,000 mls @ 50 mls/hr IV .Q20H [facility] Stop: 04/30/17 22:30 Insulin Human Lispro (Humalog Low) 0 units SC ACHS [facility] PRN Reason: Protocol Last Admin: 04/30/17 17:12 Dose: Not Given Losartan Potassium (Cozaar) 100 mg PO DAILY [facility] Last Admin: 04/30/17 09:37 Dose: 100 mg Magnesium Oxide (Mag-Ox) 400 mg PO [facility] Metoprolol Succinate (Toprol Xl) 25 mg PO DAILY [facility] Last Admin: 04/30/17 09:38 Dose: 25 mg Multivitamins/Minerals (Therapeutic-M Tab) 1 tab PO DIN [facility] Last Admin: 04/30/17 17:36 Dose: 1 tab Non-Formulary Medication (Ubidecarenone [Coq-10]) 200 mg PO DIN [facility] Last Admin: 04/30/17 18:59 Dose: Not Given Pantoprazole Sodium (Protonix Ec Tab) 40 mg PO 0600 [facility] Last Admin: 04/30/17 05:24 Dose: 40 mg Zolpidem Tartrate (Ambien) 5 mg PO HS PRN PRN Reason: Insomnia - Labs Labs: PT 10.6 SECONDS (9.4-12.5) 04/29/17 21:20 INR 0.97 (0.93-1.08) 04/29/17 21:20 APTT 40.2 Seconds (25.1-36.5) H 04/30/17 11:38 - Constitutional Appears: In Acute Distress - Head Exam Head Exam: ATRAUMATIC, NORMAL INSPECTION, NORMOCEPHALIC - Eye Exam Eye Exam: EOMI, Normal appearance, PERRL - ENT Exam ENT Exam: Mucous Membranes Moist, Normal Exam - Neck Exam Neck Exam: Normal Inspection - Respiratory Exam Respiratory Exam: Clear to Ausculation Bilateral, NORMAL BREATHING PATTERN - Cardiovascular Exam Cardiovascular Exam: REGULAR RHYTHM, +S1, +S2 Additional comments: dorsal pulses intact bilaterally - GI/Abdominal Exam GI & Abdominal Exam: Soft, Normal Bowel Sounds. absent: Tenderness - Extremities Exam Extremities Exam: Normal Capillary Refill, Normal Inspection - Neurological Exam Neurological Exam: Alert, Awake, Oriented x3 Assessment and Plan - Assessment and Plan (Free Text) Assessment: 71 year old female post sent of the RCA this afternoon, complaining to nurse of non radiating chest pain. Plan: 1. Acute Onset Chest Pain EKG ordered and obtained, no change form pevious EKG, BP: BP165/92, HR 80 NSR with 1st degree AVB. Dr. Johnson was made aware of patient c/o chest pain. Dr. Johnson told give Nitro SL 0.4mg for chest pain. Given 2x , Chest pain resolved. BP 148/72, continue to monitor <Lion Castellanos - Last Filed: 05/01/17 10:54> Objective - Vital Signs/Intake and Output Vital Signs (last 24 hours): Temp Pulse Resp BP Pulse Ox 97.7 F 74 20 131/72 98 05/01/17 06:00 05/01/17 09:44 05/01/17 06:00 05/01/17 09:44 05/01/17 06:00 Intake and Output: 05/01/17 05/01/17 06:59 18:59 Intake Total 1240 Balance 1240 - Medications Medications: Current Medications Acetaminophen (Tylenol 325mg Tab) 650 mg PO Q4H PRN PRN Reason: Pain, Mild (1-3) Alprazolam (Xanax) 0.25 mg PO BID PRN PRN Reason: Anxiety Stop: 05/07/17 15:58 Amlodipine Besylate (Norvasc) 5 mg PO DAILY [facility] Last Admin: 05/01/17 09:45 Dose: Not Given Aspirin (Ecotrin) 81 mg PO DAILY [facility] Last Admin: 05/01/17 09:44 Dose: 81 mg Atorvastatin Calcium (Lipitor) 20 mg PO DIN [facility] Cholecalciferol (Vitamin D) 1,000 iu PO DAILY [facility] Last Admin: 05/01/17 09:43 Dose: 1,000 iu Clonidine HCl (Catapres) 0.1 mg PO Q6H PRN PRN Reason: Q6H PRN: SBP>160 Last Admin: 04/30/17 17:36 Dose: 0.1 mg Clopidogrel Bisulfate (Plavix) 75 mg PO DAILY [facility] Last Admin: 05/01/17 09:43 Dose: 75 mg Docusate Sodium (Colace) 100 mg PO BID [facility] Last Admin: 05/01/17 09:43 Dose: 100 mg Home Med (Home Med) 1 unit PO 0600 [facility] Last Admin: 05/01/17 05:32 Dose: 1 unit Home Med (Home Med) 1 unit PO DAILY [facility] Last Admin: 05/01/17 09:42 Dose: Not Given Home Med (Home Med) 1 unit PO DIN [facility] Last Admin: 04/30/17 19:03 Dose: 1 unit Insulin Human Lispro (Humalog Low) 0 units SC ACHS [facility] PRN Reason: Protocol Last Admin: 05/01/17 08:16 Dose: Not Given Losartan Potassium (Cozaar) 100 mg PO DAILY [facility] Last Admin: 05/01/17 09:43 Dose: 100 mg Magnesium Oxide (Mag-Ox) 400 mg PO HS [facility] Last Admin: 04/30/17 22:08 Dose: Not Given Metoprolol Succinate (Toprol Xl) 25 mg PO DAILY [facility] Last Admin: 05/01/17 09:44 Dose: 25 mg Multivitamins/Minerals (Therapeutic-M Tab) 1 tab PO DIN [facility] Last Admin: 04/30/17 17:36 Dose: 1 tab Non-Formulary Medication (Ubidecarenone [Coq-10]) 200 mg PO DIN [facility] Last Admin: 04/30/17 18:59 Dose: Not Given Pantoprazole Sodium (Protonix Ec Tab) 40 mg PO 0600 [facility] Last Admin: 05/01/17 05:32 Dose: 40 mg Zolpidem Tartrate (Ambien) 5 mg PO HS PRN PRN Reason: Insomnia - Labs Labs: 05/01/17 07:20 05/01/17 07:20 PT 10.6 SECONDS (9.4-12.5) 04/29/17 21:20 INR 0.97 (0.93-1.08) 04/29/17 21:20 APTT 40.2 Seconds (25.1-36.5) H 04/30/17 11:38 Attending/Attestation - Attestation I have personally seen and examined this patient.: Yes I have fully participated in the care of the patient.: Yes I have reviewed all pertinent clinical information, including history, physical exam and plan: Yes
--- NOTE | 2017-04-30 22:20 | CARD ---
APPROVED REPORT EKG Measurement Heart [id number] <Conclusion> Sinus rhythm with 1st degree AV block Otherwise normal ECG
--- NOTE | 2017-04-30 22:30 | CARD ---
APPROVED REPORT EKG Measurement Heart [id number] [place] [id number] [id number] <Conclusion> Sinus rhythm with 1st degree AV block Otherwise normal ECG
--- NOTE | 2017-04-30 22:55 | CARD ---
APPROVED REPORT EKG Measurement Heart [id number] [place] [id number] [id number] <Conclusion> Normal sinus rhythm Normal ECG
--- NOTE | 2017-04-30 23:00 | CARD ---
APPROVED REPORT EKG Measurement Heart [id number] [place] 182P35 [id number] <Conclusion> Normal sinus rhythm Normal ECG
[2017-05-01] MEDS: SYNTHROID 137 MCG PO SCH (05:32)
[2017-05-01] MEDS: Pantoprazole 40 mg EC Tab PO SCH (05:32)
[2017-05-01 07:39] LABS: BASO # 0.03 K/mm3 (0.0-2.0); BASO % 0.4 % (0.0-3.0); EOS # 0.1 (0.0-0.7); EOS % 0.8 % (1.5-5.0); GRAN # 4.04 (1.4-6.5); GRAN % 54.3 % (50.0-68.0); HEMATOCRIT 33.7 % (36.0-48.0); LYMPH # 2.8 (1.2-3.4); LYMPH % 37.3 % (22.0-35.0); MEAN CELL VOLUME 86.4 fl (80.0-105.0); MEAN CORPUSCULAR HEMOGLOBIN 29.2 pg (25.0-35.0); MEAN CORPUSCULAR HGB CONC 33.8 g/dl (31.0-37.0); MEAN PLATELET VOLUME 9.4 fl (7.0-11.0); MONO # 0.5 (0.1-0.6); MONO % 7.2 % (1.0-6.0); RED CELL DISTRIBUTION WIDTH 12.8 % (11.5-14.5); WHITE BLOOD COUNT 7.5 10^3/ul (4.5-11.0)
[2017-05-01 07:59] LABS: ALB/GLOB RATIO 1.6 (1.1-1.8); ALKALINE PHOSPHATASE 56 U/L (38-126); ALT/SGPT 38 U/L (7-56); AST/SGOT 33 U/L (14-36); BILIRUBIN,TOTAL 0.6 mg/dL (0.2-1.3); BLOOD UREA NITROGEN 20 mg/dL (7-21); CALCIUM 8.9 mg/dL (8.4-10.5); CARBON DIOXIDE 25 mmol/L (21-33); CHLORIDE 100 mmol/L (98-107); GFR AFRICAN-AMERICAN > 60; GLUCOSE,RANDOM 109 mg/dL (70-110); POTASSIUM 4.6 mmol/L (3.6-5.0); SODIUM 135 mmol/L (132-148); TOTAL PROTEIN 6.7 g/dL (5.8-8.3)
[2017-05-01] MEDS: Insulin Lispro (humaLOG) LOW Coverage SC SCH ×2 (08:16→11:56)
[2017-05-01] MEDS: PROMACTA 50 MG PO SCH (09:42)
[2017-05-01] MEDS: Metoprolol Succinate 25 mg XL Tab PO SCH (09:44)
[2017-05-01 11:13] VITALS: O2SAT 97
--- NOTE | 2017-05-01 12:30 | CP.PCM.DIS ---
<Nathan Viera - Last Filed: 05/01/17 12:20> Provider - Provider Date of Admission: 04/30/17 16:48 Attending physician: Lion Castellanos MD Consults: Cardiology Time Spent in preparation of Discharge (in minutes): 45 Hospital Course - Lab Results Lab Results: Most Recent Lab Values WBC 7.5 10^3/ul (4.5-11.0) 05/01/17 07:20 RBC 3.90 10^6/uL (3.5-6.1) 05/01/17 07:20 Hgb 11.4 g/dL (12.0-16.0) L 05/01/17 07:20 Hct 33.7 % (36.0-48.0) L 05/01/17 07:20 MCV 86.4 fl (80.0-105.0) 05/01/17 07:20 MCH 29.2 pg (25.0-35.0) 05/01/17 07:20 MCHC 33.8 g/dl (31.0-37.0) 05/01/17 07:20 RDW 12.8 % (11.5-14.5) 05/01/17 07:20 Plt Count 170 10^3/uL (120.0-450.0) 05/01/17 07:20 MPV 9.4 fl (7.0-11.0) 05/01/17 07:20 Gran % 54.3 % (50.0-68.0) 05/01/17 07:20 Lymph % (Auto) 37.3 % (22.0-35.0) H 05/01/17 07:20 [place] % (Auto) 7.2 % (1.0-6.0) H 05/01/17 07:20 Eos % (Auto) 0.8 % (1.5-5.0) L 05/01/17 07:20 Baso % (Auto) 0.4 % (0.0-3.0) 05/01/17 07:20 Gran # 4.04 (1.4-6.5) 05/01/17 07:20 Lymph # 2.8 (1.2-3.4) 05/01/17 07:20 [place] # 0.5 (0.1-0.6) 05/01/17 07:20 Eos # 0.1 (0.0-0.7) 05/01/17 07:20 Baso # 0.03 K/mm3 (0.0-2.0) 05/01/17 07:20 PT 10.6 SECONDS (9.4-12.5) 04/29/17 21:20 INR 0.97 (0.93-1.08) 04/29/17 21:20 APTT 40.2 Seconds (25.1-36.5) H 04/30/17 11:38 Sodium 135 mmol/L (132-148) 05/01/17 07:20 Potassium 4.6 mmol/L (3.6-5.0) 05/01/17 07:20 Chloride 100 mmol/L (98-107) 05/01/17 07:20 Carbon Dioxide 25 mmol/L (21-33) 05/01/17 07:20 Anion Gap 15 (10-20) 05/01/17 07:20 BUN 20 mg/dL (7-21) 05/01/17 07:20 Creatinine 1.0 mg/dL (0.7-1.2) 05/01/17 07:20 Est GFR ( Amer) > 60 05/01/17 07:20 Est GFR (Non-Af Amer) 55 05/01/17 07:20 POC Glucose (mg/dL) 106 mg/dL (65-110) 04/30/17 22:35 Random Glucose 109 mg/dL (70-110) 05/01/17 07:20 Calcium 8.9 mg/dL (8.4-10.5) 05/01/17 07:20 Phosphorus 4.7 mg/dL (2.5-4.5) H 04/30/17 05:00 Magnesium 2.0 mg/dL (1.7-2.2) 04/30/17 05:00 Total Bilirubin 0.6 mg/dL (0.2-1.3) 05/01/17 07:20 AST 33 U/L (14-36) 05/01/17 07:20 ALT 38 U/L (7-56) 05/01/17 07:20 Alkaline Phosphatase 56 U/L (38-126) 05/01/17 07:20 Lactate Dehydrogenase 327 U/L (333-699) L 04/30/17 11:38 Total Creatine Kinase 38 U/L (35-230) 04/30/17 11:38 Troponin I < 0.01 ng/mL 04/30/17 11:38 Total Protein 6.7 g/dL (5.8-8.3) 05/01/17 07:20 Albumin 4.1 g/dL (3.0-4.8) 05/01/17 07:20 Globulin 2.6 gm/dL 05/01/17 07:20 Albumin/Globulin Ratio 1.6 (1.1-1.8) 05/01/17 07:20 - Hospital Course Hospital Course: 71 yo female with PMH of [place], CAD s/p 3 stents, HLD, HTN, type 2 DM, myasthenia gravis, hypothyroidism and ITP presents with complaint of chest pain. Basic lab work and EKG was done in the ED. Serial trops were negative. Cardiology was consulted. Pt was placed on heparin IV and her usual heart medication including ASA, plavix, lipitor, losartan and metoprolol. Cardiology recommended taking the patient for cardiac cath due to significant heart hx and recent abnormal stress test. Cardiac cath showed significant RCA stent restenosis. Following the procedure patient had some burning chest pain relieved with nitro .4mg x 3. Today the patient is feeling significantly better. Denies any chest pain or sob. Able to ambulate with out getting sob. As per cardiology Dr Johnson will discharge home with same medications as prior to the hospital. patient denies any f/c, sob, palpitations, cp, abd pain, n/v/d. Discharge Exam - Head Exam Head Exam: ATRAUMATIC, NORMAL INSPECTION, NORMOCEPHALIC - Eye Exam Eye Exam: EOMI, PERRL - ENT Exam ENT Exam: Mucous Membranes Moist - Respiratory Exam Respiratory Exam: Clear to PA & Lateral. absent: Rales, Rhonchi, Wheezes - Cardiovascular Exam Cardiovascular Exam: REGULAR RHYTHM, RRR, +S1, +S2 - GI/Abdominal Exam GI & Abdominal Exam: Normal Bowel Sounds. absent: Tenderness - Neurological Exam Neurological exam: Alert, Oriented x3 - Psychiatric Exam Psychiatric exam: Normal Affect, Normal Mood - Skin Skin Exam: Dry, Intact, Warm Discharge Plan - Follow Up Plan Condition: IMPROVED Disposition: HOME/ ROUTINE Instructions: Chest Pain (DC), Heart Healthy Diet (DC), Diabetes Mellitus Type 1 in Adults (DC), Diabetes Mellitus Type 2 in Adults (DC), Cholesterol and Your Health (GEN), Low Sodium Diet (DC), Anemia (DC), Heart Catheterization (DC), Coronary Artery Disease in Women (DC) Additional Instructions: Follow up with your PMD within 3-5 days. Follow up with your cardiology with in 1 week. Take your medications as prescribed. If your symptoms recur come back to the ED. Pt stated she has all her medication at home and does not require any refills. Referrals: De Arteaga MD [Staff Provider] - <Lion Castellanos - Last Filed: 05/02/17 11:53> Provider - Provider Date of Admission: 04/30/17 16:48 Attending physician: Lion Castellanos MD Hospital Course - Lab Results Lab Results: Most Recent Lab Values WBC 7.5 10^3/ul (4.5-11.0) 05/01/17 07:20 RBC 3.90 10^6/uL (3.5-6.1) 05/01/17 07:20 Hgb 11.4 g/dL (12.0-16.0) L 05/01/17 07:20 Hct 33.7 % (36.0-48.0) L 05/01/17 07:20 MCV 86.4 fl (80.0-105.0) 05/01/17 07:20 MCH 29.2 pg (25.0-35.0) 05/01/17 07:20 MCHC 33.8 g/dl (31.0-37.0) 05/01/17 07:20 RDW 12.8 % (11.5-14.5) 05/01/17 07:20 Plt Count 170 10^3/uL (120.0-450.0) 05/01/17 07:20 MPV 9.4 fl (7.0-11.0) 05/01/17 07:20 Gran % 54.3 % (50.0-68.0) 05/01/17 07:20 Lymph % (Auto) 37.3 % (22.0-35.0) H 05/01/17 07:20 [place] % (Auto) 7.2 % (1.0-6.0) H 05/01/17 07:20 Eos % (Auto) 0.8 % (1.5-5.0) L 05/01/17 07:20 Baso % (Auto) 0.4 % (0.0-3.0) 05/01/17 07:20 Gran # 4.04 (1.4-6.5) 05/01/17 07:20 Lymph # 2.8 (1.2-3.4) 05/01/17 07:20 [place] # 0.5 (0.1-0.6) 05/01/17 07:20 Eos # 0.1 (0.0-0.7) 05/01/17 07:20 Baso # 0.03 K/mm3 (0.0-2.0) 05/01/17 07:20 PT 10.6 SECONDS (9.4-12.5) 04/29/17 21:20 INR 0.97 (0.93-1.08) 04/29/17 21:20 APTT 40.2 Seconds (25.1-36.5) H 04/30/17 11:38 Sodium 135 mmol/L (132-148) 05/01/17 07:20 Potassium 4.6 mmol/L (3.6-5.0) 05/01/17 07:20 Chloride 100 mmol/L (98-107) 05/01/17 07:20 Carbon Dioxide 25 mmol/L (21-33) 05/01/17 07:20 Anion Gap 15 (10-20) 05/01/17 07:20 BUN 20 mg/dL (7-21) 05/01/17 07:20 Creatinine 1.0 mg/dL (0.7-1.2) 05/01/17 07:20 Est GFR ( Amer) > 60 05/01/17 07:20 Est GFR (Non-Af Amer) 55 05/01/17 07:20 POC Glucose (mg/dL) 120 mg/dL (65-110) H 05/01/17 11:26 Random Glucose 109 mg/dL (70-110) 05/01/17 07:20 Calcium 8.9 mg/dL (8.4-10.5) 05/01/17 07:20 Phosphorus 4.7 mg/dL (2.5-4.5) H 04/30/17 05:00 Magnesium 2.0 mg/dL (1.7-2.2) 04/30/17 05:00 Total Bilirubin 0.6 mg/dL (0.2-1.3) 05/01/17 07:20 AST 33 U/L (14-36) 05/01/17 07:20 ALT 38 U/L (7-56) 05/01/17 07:20 Alkaline Phosphatase 56 U/L (38-126) 05/01/17 07:20 Lactate Dehydrogenase 327 U/L (333-699) L 04/30/17 11:38 Total Creatine Kinase 38 U/L (35-230) 04/30/17 11:38 Troponin I < 0.01 ng/mL 04/30/17 11:38 Total Protein 6.7 g/dL (5.8-8.3) 05/01/17 07:20 Albumin 4.1 g/dL (3.0-4.8) 05/01/17 07:20 Globulin 2.6 gm/dL 05/01/17 07:20 Albumin/Globulin Ratio 1.6 (1.1-1.8) 05/01/17 07:20 Attending/Attestation - Attestation I have personally seen and examined this patient.: Yes I have fully participated in the care of the patient.: Yes I have reviewed all pertinent clinical information, including history, physical exam and plan: Yes Notes (Text): 05/02/17 11:48 Patient was seen and examined with certified medical technician. DIAGNOSIS. 71 year old female with past medical history of CAD, hypertension, dyslipidemia and diabetes was admitted with chest pain, had abnormal stress test as out patient, she underwent cardiac catherization and was found to have stenosis of RCA stent , drug eluting stent was placed.Patient is feeling better today, she is ambulatory.She was evaluated by cardiology and was cleared for discharge. Management plan was discussed in detail with patient Education was provided.
[2017-05-01 12:57] VITALS: BP 112/63; PULSE 62; RESP 21; TEMP 97.1
--- NOTE | 2017-05-01 13:18 | PN ---
DATE: 05/01/2017 SUBJECTIVE: The patient is seen sitting in a chair, in the telemetry. She is currently comfortable. She underwent cardiac catheterization yesterday and is found to have patent LAD stents; however, did have an in-stent restenosis of RCA. This is treated with repeat balloon angioplasty and stenting. She did have some chest and back discomfort overnight with no significant EKG changes. She is feeling better today and ambulated around the unit several times. CURRENT MEDICATIONS: Include aspirin, Plavix, losartan 100 mg daily, insulin coverage, Lipitor 20 mg daily, amlodipine 5 mg daily, Protonix 40 mg daily, Toprol-XL 25 mg daily, and Xanax p.r.n. OBJECTIVE: GENERAL: She is a middle-aged woman who appears comfortable at the present time. VITAL SIGNS: Her blood pressure is 130/70, pulse is 68 and sinus, respirations are 16, and she is afebrile. HEENT: No JVD. CHEST: Clear to auscultation and percussion. HEART: PMI in normal position. Systolic murmur is present in the left sternal border. ABDOMEN: Soft, nontender with normoactive bowel sounds. EXTREMITIES: No edema. SKIN: Warm and dry. PSYCHIATRIC: Normal mood and affect. DIAGNOSTIC DATA: Potassium 4.6, BUN and creatinine 20 and 1.0. Hemoglobin and hematocrit 11.4 and 33.7 with a white count of 7.5 and platelet count of 170,000. IMPRESSION: 1. Recent acute coronary artery syndrome appears secondary to significant right coronary artery in-stent restenosis successfully treated with repeat percutaneous coronary intervention. 2. Rest of the problems as noted. RECOMMENDATIONS: From a cardiac standpoint, she appears stable for discharge home at this time. Continue aspirin and Plavix therapy for at least one year as planned. Her cardiac medications will be continued, unchanged. Outpatient followup will be arranged. Continue risk factor control as advised. Geovanny Johnson MD
== END 2017-05-01 14:26 | disposition home or self-care (01) | DRG 247 ==
LOC: ED 21:12 → ERH 21:57 → 2RNO 23:17 → OBSVTOIN 04-30 16:48 → 2RSO 04-30 16:51
PROVIDERS: ADMIT Internal Medicine; ATTEND Internal Medicine
PROC: 027034Z Dilation of Coronary Artery, One Artery with Drug-eluting Intraluminal Device, Percutaneous Approach (ICD-10-PCS; principal; 2017-04-30)
PROC: B2111ZZ Fluoroscopy of Multiple Coronary Arteries using Low Osmolar Contrast (ICD-10-PCS; 2017-04-30)
PROC: B2151ZZ Fluoroscopy of Left Heart using Low Osmolar Contrast (ICD-10-PCS; 2017-04-30)
PROC: B41F1ZZ Fluoroscopy of Right Lower Extremity Arteries using Low Osmolar Contrast (ICD-10-PCS; 2017-04-30)
DX: I25.110 Atherosclerotic heart disease of native coronary artery with unstable angina pectoris (principal); D69.3 Immune thrombocytopenic purpura; I24.9 Acute ischemic heart disease, unspecified; T82.855A Stenosis of coronary artery stent, initial encounter; G70.00 Myasthenia gravis without (acute) exacerbation; H34.9 Unspecified retinal vascular occlusion; E11.9 Type 2 diabetes mellitus without complications; I10 Essential (primary) hypertension; Y83.1 Surgical operation with implant of artificial internal device as the cause of abnormal reaction of the patient, or of later complication, without mention of misadventure at the time of the procedure; E78.5 Hyperlipidemia, unspecified; H54.61 Unqualified visual loss, right eye, normal vision left eye; I25.2 Old myocardial infarction; J45.909 Unspecified asthma, uncomplicated; Z79.02 Long term (current) use of antithrombotics/antiplatelets; Z79.82 Long term (current) use of aspirin; Z79.899 Other long term (current) drug therapy; Z85.828 Personal history of other malignant neoplasm of skin; E03.9 Hypothyroidism, unspecified; Z90.49 Acquired absence of other specified parts of digestive tract; Z90.710 Acquired absence of both cervix and uterus

== ENCOUNTER 2018-08-05 07:21 | Outpatient (CLI) | payer MEDICARE, OTHER | END 2018-08-05 07:22 | disposition home or self-care (01) | LOC: RAD 07:21 ==

== ENCOUNTER 2018-08-15 13:11 | Observation (INO) | payer MEDICARE, OTHER ==
[2018-08-15 13:11] VITALS: BMI 26.6
--- NOTE | 2018-08-15 13:59 | RAD ---
Date of service: 08/15/2018 HISTORY: chest pain COMPARISON: 08/05/2018 FINDINGS: LUNGS: No active pulmonary disease. PLEURA: No significant pleural effusion identified, no pneumothorax apparent. CARDIOVASCULAR: No aortic atherosclerotic calcification present. Normal cardiac size. No pulmonary vascular congestion. OSSEOUS STRUCTURES: No significant abnormalities. VISUALIZED UPPER ABDOMEN: Normal. OTHER FINDINGS: None. IMPRESSION: No active disease.
--- NOTE | 2018-08-15 14:08 | ED PDOC ---
Arrival/HPI - General Chief Complaint: Chest Pain Historian: Patient - History of Present Illness Narrative History of Present Illness (Text): 08/15/18 14:03 73 year old F w/ h/o CAD s/p 4 stents(2016, 2014) presenting to the Emergency Room for chest pain present ongoing for last week. Patient descibres the pressure as localized to the left side of the chest with intermittent radiation to the left arm that spontaneously resolves. The patient states she took 324 of aspirin today as well as 2 SL NTG yesterday that did not help in alleviating the chest pain. She denies associated shortness of breath, dizziness, syncopal episodes, back pain, jaw pain, nausea or emesis. She denies any recent URIs or subjective fevers/chills. PCP: Dr. Saldana Mold Filling Operator: Dr. Hernandez = Time/Duration: 1 week Symptom Onset: Gradual Symptom Course: Unchanged Quality: Pressure Severity Level: 6 Activities at Onset: Rest Context: Home Past Medical History - Provider Review Nursing Documentation Reviewed: Yes - Travel History Have you recently traveled outside [place] w/in the past 3 mons?: No - Infectious Disease Hx of Infectious Diseases: None - Reproductive Currently : No - Cardiac Hx Pacemaker: No - Pulmonary Hx Respiratory Disorders: Yes Hx Asthma: Yes Hx Bronchitis: Yes - Neurological Hx Paralysis: No - HEENT Hx HEENT Disorder: Yes (reading glasses) Hx Cataracts: Yes - Renal Hx Renal Disorder: No (denies) - Endocrine/Metabolic Hx Diabetes Mellitus Type 2: Yes Hx Hypothyroidism: Yes - Hematological/Oncological Hx Blood Transfusions: Yes (PLATELETS) Hx Blood Transfusion Reaction: No - Integumentary Hx Dermatological Disorder: Yes Hx Basal Cell Carcinoma: Yes - Musculoskeletal/Rheumatological Hx Musculoskeletal Disorders: Yes - Gastrointestinal Hx Gastrointestinal Disorders: No - Genitourinary/Gynecological Hx Genitourinary Disorders: No - Psychiatric Hx Substance Use: No - Surgical History Hx Cholecystectomy: Yes Hx Coronary Stent: Yes (x3) Hx Hysterectomy: Yes Hx Orthopedic Surgery: Yes (right knee) - Anesthesia Hx Anesthesia Reactions: No Hx Malignant Hyperthermia: No - Suicidal Assessment Feels Threatened In Home Enviroment: No Family/Social History - Physician Review Nursing Documentation Reviewed: Yes Family/Social History: Unknown Family HX Smoking Status: Never Smoked Hx Alcohol Use: No Hx Substance Use: No Hx Substance Use Treatment: No Allergies/Home Meds Allergies/Adverse Reactions: Allergies clarithromycin [From Biaxin] Allergy (Severe, Verified 08/15/18 19:46) ANAPHYLAXIS glucosamine Allergy (Severe, Verified 08/15/18 19:46) ANAPHYLAXIS kiwi Allergy (Verified 08/15/18 21:39) RASH ITCHIHG,"WHITE DISCHARGE TO EYES" atorvastatin [From Lipitor] Adverse Reaction (Verified 08/15/18 19:46) FATIGUE Home Medications: Home Meds Medication Instructions Recorded Confirmed RX: MetFORMIN [glucoPHAGE] 500 mg PO TID 06/05/15 08/15/18 RX: Clopidogrel [Plavix] 75 mg PO DAILY 06/08/15 08/15/18 RX: Metoprolol Succinate 25 mg PO DAILY 06/08/15 08/15/18 RX: Rosuvastatin Calcium [Crestor] 5 mg PO DAILY 06/08/15 08/15/18 RX: Aspirin [Aspirin EC] 81 mg PO DAILY 06/10/15 08/15/18 RX: Cholecalciferol (Vitamin D3) 1,000 unit PO DAILY 04/03/16 08/15/18 [Vitamin D3] RX: Magnesium Oxide [Magnesium] 400 mg PO DAILY 04/03/16 08/15/18 RX: Multivit-Min/FA/Lycopen/Lutein 1 tab PO DAILY 04/03/16 08/15/18 [Centrum Silver Tablet] RX: Ubidecarenone [Coq-10] 200 mg PO DAILY 04/03/16 08/15/18 RX: Valsartan [Diovan] 80 mg PO BID 04/03/16 08/15/18 RX: Levothyroxine [Synthroid] 125 mcg PO DAILY 05/07/17 08/16/18 RX: Umeclidinium Brm/Vilanterol Tr 1 inh INH DAILY 08/15/18 08/15/18 [Anoro Ellipta 62.5-25 Mcg INH] Review of Systems - Physician Review All systems were reviewed & negative as marked: Yes - Review of Systems Constitutional: absent: Fatigue, Fevers, Night Sweats Cardiovascular: Chest Pain. absent: Palpitations, Edema, Calf Pain, KIM Gastrointestinal: absent: Abdominal Pain Physical Exam Vital Signs Reviewed: Yes Vital Signs Temp Pulse Resp BP Pulse Ox 08/15/18 13:27 98.8 F 75 18 186/86 H 95 Temperature: Afebrile Blood Pressure: Hypertensive Pulse: Regular Respiratory Rate: Normal Appearance: Positive for: Well-Appearing, Non-Toxic, Comfortable Mental Status: Positive for: Alert and Oriented X 3 - Systems Exam Head: Present: Atraumatic, Normocephalic Pupils: Present: PERRL Extroacular Muscles: Present: EOMI Conjunctiva: Present: Normal Mouth: Present: Moist Mucous Membranes Neck: Present: Normal Range of Motion Respiratory/Chest: Present: Clear to Auscultation, Good Air Exchange. No: Respiratory Distress Cardiovascular: Present: Regular Rate and Rhythm, Normal S1, S2 Abdomen: Present: Normal Bowel Sounds. No: Tenderness, Distention Upper Extremity: Present: Normal Inspection. No: Cyanosis, Edema Lower Extremity: Present: Normal Inspection, Capillary Refill < 2 s. No: Edema Neurological: Present: GCS=15, Speech Normal Skin: Present: Warm, Dry, Normal Color. No: Rashes Psychiatric: Present: Alert, Oriented x 3, Normal Insight, Normal Concentration Medical Decision Making ED Course and Treatment: 08/15/18 14:14 Impression 73F w/ h/o CAD w/ chest pain Differential Diagnoses Includes But Is Not Limited To: --ACS --Myocarditis/Pericarditis --PNA Plan --Labs --CXR --EKG --Metoprolol --Cardiology consult --Reassess & disposition Progress Notes 08/15/18 15:12 Labs reviewed with negative troponin and patient's chest pain unresolved. Spoke to Dr. Hernandez(cardiology) who states patient may be given metoprolol an kept for remote telemetry and observation. Spoke to Dr. Castellanos(hospitalist) who accepts the patient onto his service. - Lab Interpretations Lab Results: 08/15/18 13:44 08/15/18 13:44 Lab Results 08/15/18 13:44: Sodium 133, Potassium 4.4, Chloride 97 L, Carbon Dioxide 26, Anion Gap 14, BUN 16, Creatinine 0.8, Est GFR ( Amer) > 60, Est GFR (Non- Af Amer) > 60, Random Glucose 130 H, Calcium 9.5, Magnesium 1.9, Total Bilirubin 0.3, AST 37 H D, ALT 11, Alkaline Phosphatase 60, Troponin I < 0.01, NT-Pro-B Natriuret Pep 178, Total Protein 7.5, Albumin 4.4, Globulin 3.0, Albumin/Globulin Ratio 1.5 08/15/18 13:44: PT 11.8, INR 1.06, APTT 29.3 08/15/18 13:44: WBC 8.6, RBC 4.03, Hgb 11.8 L, Hct 35.0 L, MCV 86.8, MCH 29.3, MCHC 33.7, RDW 12.7, Plt Count 247, MPV 9.2, Neut % (Auto) 55.6, Lymph % (Auto) 36.9 H, [place] % (Auto) 6.1 H, Eos % (Auto) 0.9 L, Baso % (Auto) 0.5, Lymph # (Auto) 3.2, [place] # (Auto) 0.5, Eos # (Auto) 0.1, Baso # (Auto) 0.04, Absolute Neuts (auto) 4.78 I have reviewed the lab results: Yes - RAD Interpretation Narrative RAD Interpretations (Text): 08/15/18 15:00 CXR reviewed by radiologist, shows: FINDINGS: LUNGS: No active pulmonary disease. PLEURA: No significant pleural effusion identified, no pneumothorax apparent. CARDIOVASCULAR: No aortic atherosclerotic calcification present. Normal cardiac size. No pulmonary vascular congestion. OSSEOUS STRUCTURES: No significant abnormalities. VISUALIZED UPPER ABDOMEN: Normal. OTHER FINDINGS: None. IMPRESSION: No active disease. Radiology Orders: 08/15/18 13:41 CHEST PORTABLE [RAD] Stat [employer] Department Supervisor: Radiologist - Medication Orders Current Medication Orders: 08/17/18 23:21 Discontinued Medications Albuterol/Ipratropium (Duoneb 3 Mg/0.5 Mg (3 Ml) Ud) 3 ml IH [id number] PRN PRN Reason: Shortness of Breath Aspirin (Ecotrin) 81 mg PO DAILY [facility] Last Admin: 08/16/18 11:04 Dose: 81 mg Dextrose (Dextrose 50% Inj) 0 ml IV STAT PRN; Protocol PRN Reason: Hypoglycemia Protocol Home Med (Home Med) 1 unit PO 0600 [facility] Home Med (Home Med) 1 unit PO DAILY [facility] Last Admin: 08/16/18 11:00 Dose: 1 unit Home Med (Home Med) 1 unit PO BRK [facility] Home Med (Home Med) 1 unit PO WM [facility] Last Admin: 08/16/18 11:03 Dose: 1 unit Home Med (Home Med) 1 unit PO DAILY [facility] Last Admin: 08/16/18 11:01 Dose: 1 unit Hydralazine HCl (Apresoline) 10 mg IVP Q6 PRN PRN Reason: SBP > 180 or DBP > 110 Dextrose (Dextrose 5% In Water 1000 Ml) 1,000 mls @ 0 mls/hr IV .Q0M PRN; Protocol PRN Reason: Hypoglycemia Protocol Influenza Virus Vaccine (Flucelvax Quad 3781-4624 Syr) 60 mcg IM .ONCE ONE Stop: 08/15/18 22:08 Insulin Human Lispro (Humalog Low) 0 units SC [facility]; Protocol Last Admin: 08/16/18 11:36 Dose: Not Given Non-Admin Reason: Patient Refused [facility] Blood Glucose Document 08/16/18 11:36 RV (Rec: 08/16/18 11:36 RV [id number] Blood Glucose Finger Stick Blood Glucose (70-120) 231 Levothyroxine Sodium 112 mcg/ (Levothyroxine Sodium 25 mcg) 137 mcg PO 0600 [facility] Last Admin: 08/16/18 05:43 Dose: Not Given Non-Admin Reason: Patient Refused Levothyroxine Sodium (Synthroid) 125 mcg PO 0600 [facility] Levothyroxine Sodium (Synthroid) 125 mcg PO ONCE ONE Stop: 08/17/18 08:28 Losartan Potassium (Cozaar) 50 mg PO BID [facility] Last Admin: 08/15/18 18:15 Dose: 50 mg [facility] Pulse and Blood Pressure Document 08/15/18 18:15 MR (Rec: 08/15/18 18:15 MR [id number]) Pulse Pulse Rate (60-90 beats/min) 73 Blood Pressure Blood Pressure (100/60-150/90 mm Hg) 142/70 Metformin HCl (Glucophage) 500 mg PO WM [facility] Last Admin: 08/16/18 08:04 Dose: 500 mg Metoprolol Succinate (Toprol Xl) 25 mg PO BRK [facility] Last Admin: 08/16/18 08:07 Dose: 25 mg MAR Pulse and Blood Pressure Document 08/16/18 08:07 RV (Rec: 08/16/18 08:07 RV [id number]) Pulse Pulse Rate (60-90 beats/min) 61 Blood Pressure Blood Pressure (100/60-150/90 mm Hg) 126/78 Non-Formulary Medication (Rosuvastatin Calcium [Crestor]) 5 mg PO DAILY [facility] Last Admin: 08/16/18 12:38 Dose: Not Given Non-Admin Reason: do not have Pneumococcal Polyvalent Vaccine (Pneumovax 23 Vaccine) 0.5 ml IM .ONCE ONE Stop: 08/15/18 22:08 Disposition/Present on Arrival - Present on Arrival Any Indicators Present on Arrival: No History of DVT/PE: No History of Uncontrolled Diabetes: No Urinary Catheter: No History Surgical Site Infection Following: None - Disposition Have Diagnosis and Disposition been Completed?: Yes Diagnosis: Angina at rest Disposition: HOSPITALIZED Disposition Time: 15:12 Patient Plan: Admission Condition: GOOD
[2018-08-15 14:12] LABS: BASO # 0.04 K/mm3 (0.0-2.0); BASO % 0.5 % (0.0-3.0); EOS # 0.1 (0.0-0.7); EOS % 0.9 % (1.5-5.0); HEMOGLOBIN 11.8 g/dL (12.0-16.0); LYMPH # 3.2 (1.2-3.4); LYMPH % 36.9 % (22.0-35.0); MEAN CELL VOLUME 86.8 fl (80.0-105.0); MEAN CORPUSCULAR HEMOGLOBIN 29.3 pg (25.0-35.0); MEAN CORPUSCULAR HGB CONC 33.7 g/dl (31.0-37.0); MEAN PLATELET VOLUME 9.2 fl (7.0-11.0); MONO # 0.5 (0.1-0.6); MONO % 6.1 % (1.0-6.0); RBC 4.03 10^6/uL (3.5-6.1); RED CELL DISTRIBUTION WIDTH 12.7 % (11.5-14.5); WHITE BLOOD COUNT 8.6 10^3/uL (4.5-11.0)
[2018-08-15 14:22] LABS: ALB/GLOB RATIO 1.5 (1.1-1.8); ALBUMIN 4.4 g/dL (3.0-4.8); ALT/SGPT 11 U/L (7-56); AST/SGOT 37 U/L (14-36); BLOOD UREA NITROGEN 16 mg/dL (7-21); CALCIUM 9.5 mg/dL (8.4-10.5); GFR NON-AFRICAN AMERICAN > 60
[2018-08-15 14:33] LABS: B-TYPE NATRIURETIC PEPTIDE 178 pg/mL (0-450); INR 1.06; PARTIAL THROMBOPLASTIN TIME 29.3 Seconds (26.9-38.3); PROTHROMBIN TIME 11.8 SECONDS (9.4-12.5); TROPONIN I < 0.01 ng/mL
--- NOTE | 2018-08-15 16:43 | CP.PCM.HP ---
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 Pain began prior to going to bed 1 week ago, improved after ingesting an aspirin (325mg). Episode recurred with some radiation to left shoulder, and twice to left arm, but never to jaw, right chest, or back. Always improved spontaneously or with PO aspirin dose. Presented today because persisted despite 2x aspirins (separately) and 1x Sublingual Nitro. Chest pain described as pressure, or sensation of "bubble" under the chest, not worse with exertion, deep breaths, palpation, or movement of the left arm. No change with PO intake. Tolerating PO intake well, urinating normally, and at baseline bowel movements (constipated, BM every 2-3 days). Denies shortness of breath, nausea, emesis, diarrhea, dysuria, hematuria, fevers, chills, focal or generalized weakness, acute changes in vision. States this chest pain is not similar to that experienced with prior MIs/when she needed stenting. Not reproducible on exam. 12 system ROS reviewed and was negative, except as above. PMH: as above PSH: Cholecystectomy, Cardiac cath, cardiac stents x3, R-knee arthroscopy Fam Hx: DM2, CAD (multiple family members) Soc Hx: Denied tobacco, EtOH, and illicit drug use Meds: Confirmed with pharmacy, as per MAR All: Clarithromycine, glucosamine PMD: Dr. Saldana Cardio: Dr. Johnson Heme/Onc: Dr. Brasher Present on Admission - Present on Admission Any Indicators Present on Admission: No History of DVT/PE: No History of Uncontrolled Diabetes: No Urinary Catheter: No Review of Systems - Review of Systems All systems: reviewed and no additional remarkable complaints except (as per HPI) Past Patient History - Infectious Disease Hx of Infectious Diseases: None - Past Social History Smoking Status: Never Smoked - CARDIAC Hx Pacemaker: No - PULMONARY Hx Respiratory Disorders: Yes Hx Asthma: Yes Hx Bronchitis: Yes - NEUROLOGICAL Hx Paralysis: No - HEENT Hx HEENT Problems: Yes (reading glasses) Hx Cataracts: Yes - RENAL Hx Chronic Kidney Disease: No (denies) - ENDOCRINE/METABOLIC Hx Diabetes Mellitus Type 2: Yes Hx Hypothyroidism: Yes - HEMATOLOGICAL/ONCOLOGICAL Hx Blood Transfusions: Yes (PLATELETS) Hx Blood Transfusion Reaction: No - INTEGUMENTARY Hx Dermatological Problems: Yes Hx Basil Cell: Yes - MUSCULOSKELETAL/RHEUMATOLOGICAL Hx Musculoskeletal Disorders: Yes - GASTROINTESTINAL Hx Gastrointestinal Disorders: No - GENITOURINARY/GYNECOLOGICAL Hx Genitourinary Disorders: No - PSYCHIATRIC Hx Substance Use: No - SURGICAL HISTORY Hx Cholecystectomy: Yes Hx Coronary Stent: Yes (x3) Hx Hysterectomy: Yes Hx Orthopedic Surgery: Yes (right knee) - ANESTHESIA Hx Anesthesia Reactions: No Hx Malignant Hyperthermia: No Meds Allergies/Adverse Reactions: Allergies Allergy/AdvReac Type Severity Reaction Status Date / Time clarithromycin [From Biaxin] Allergy Severe ANAPHYLAXIS Verified 08/15/18 19:46 glucosamine Allergy Severe ANAPHYLAXIS Verified 08/15/18 19:46 kiwi Allergy RASH Verified 08/15/18 21:39 atorvastatin [From Lipitor] AdvReac FATIGUE Verified 08/15/18 19:46 Physical Exam - Constitutional Appears: Non-toxic, No Acute Distress - Head Exam Head Exam: ATRAUMATIC, NORMAL INSPECTION, NORMOCEPHALIC - Eye Exam Eye Exam: EOMI, Normal appearance. absent: Conjunctival injection, Scleral icterus Pupil Exam: absent: Irregular, Unequal Additional comments: Right eye central blindness, but full ROM of eye, some intact but indistinct R peripheral vision - ENT Exam ENT Exam: Mucous Membranes Moist - Neck Exam Neck exam: Positive for: Normal Inspection. Negative for: Full Rom, Lymphadenopathy, Tenderness, Thyromegaly - Respiratory Exam Respiratory Exam: Clear to Auscultation Bilateral, NORMAL BREATHING PATTERN. absent: Accessory Muscle Use, Chest Wall Tenderness (no tenderness with palpation at site of "bubble" sensation or anywhere tomorrow adjacent), Decreased Breath Sounds, Rales, Rhonchi, Wheezes - Cardiovascular Exam Cardiovascular Exam: REGULAR RHYTHM, RRR, +S1, +S2. absent: Bradycardia, Tachycardia, Irregular Rhythm, JVD, +S4 - GI/Abdominal Exam GI & Abdominal Exam: Normal Bowel Sounds, Soft. absent: Diminished Bowel Sounds, Distended, Firm, Guarding, Hyperactive Bowel Sounds, Hypoactive Bowel Sounds, Rigid, Tenderness - Extremities Exam Extremities exam: Positive for: full ROM, normal capillary refill, normal inspection, pedal pulses present. Negative for: calf tenderness, joint swelling, pedal edema, tenderness - Back Exam Back exam: absent: CVA tenderness (L), CVA tenderness (R) - Neurological Exam Neurological exam: Alert, Oriented x3 Additional comments: moving all extremities spontaneously and on command following all commands appropriately sensory grossly intact and equal bilaterally; reports some diminished sensation in bilateral LE but sensation to touch appears intact - Psychiatric Exam Psychiatric exam: Normal Affect, Normal Mood - Skin Skin Exam: Dry, Intact, Normal Color, Warm Results - Vital Signs Recent Vital Signs: Last Vital Signs Temp 98.8 F 08/15/18 13:27 Pulse 74 08/15/18 14:15 Resp 16 08/15/18 14:10 BP 186/86 H 08/15/18 14:10 Pulse Ox 95 08/15/18 14:10 - Labs Result Diagrams: 08/15/18 13:44 08/15/18 13:44 Labs: Laboratory Results - last 24 hr 08/15/18 08/15/18 08/15/18 13:44 13:44 13:44 WBC 8.6 RBC 4.03 Hgb 11.8 L Hct 35.0 L MCV 86.8 MCH 29.3 MCHC 33.7 RDW 12.7 Plt Count 247 MPV 9.2 Neut % (Auto) 55.6 Lymph % (Auto) 36.9 H [place] % (Auto) 6.1 H Eos % (Auto) 0.9 L Baso % (Auto) 0.5 Lymph # (Auto) 3.2 [place] # (Auto) 0.5 Eos # (Auto) 0.1 Baso # (Auto) 0.04 Absolute Neuts (auto) 4.78 PT 11.8 INR 1.06 APTT 29.3 Sodium 133 Potassium 4.4 Chloride 97 L Carbon Dioxide 26 Anion Gap 14 BUN 16 Creatinine 0.8 Est GFR ( Amer) > 60 Est GFR (Non-Af Amer) > 60 Random Glucose 130 H Calcium 9.5 Magnesium 1.9 Total Bilirubin 0.3 AST 37 H D ALT 11 Alkaline Phosphatase 60 Troponin I < 0.01 NT-Pro-B Natriuret Pep 178 Total Protein 7.5 Albumin 4.4 Globulin 3.0 Albumin/Globulin Ratio 1.5 Assessment & Plan - Assessment and Plan (Free Text) Assessment: This is a 71 yo F with PMH of [place], CAD s/p 4 stents, HLD, DM2, HTN, myasthenia gravis, hypothyroidism, 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 Given her extensive cardiac hx, she is being admited for obs for ACS rule-out. Plan: 1) Chest pain in setting of underlying cardiac disease - r/o ACS 2) CAD with stents x4 3) Hx [place] 4) HTN 5) HLD 6) DMII (not on insulin) 7) Unspecified platelet dysfunction - s/p 2 yr course of promacta 8) Hypothyroidism, poss hx of Myasthenia Gravis 9) Emphysema (diagnosed 1 month ago) -EKG in ED unremarkable, will repeat and reassess tomorrow AM -Cardio (Dr. Johnson) consulted, appreciate all recs -Trop negative in ED, will trend 2 more q8 -BP elevated in the ED, possibly element of [place] HTN (pt reports this dx by Dr. Saldana unprompted), will give 1x dose of Lisinopril & PRN hydralazine and f/u BPs -Continue home Metoprolol and Valsartan for BP/HR control -Continue home Crestor (pt reports unable to tolerate Lipitor), Aspirin 81mg, and Plavix 75mg given CAD with stents -Hold home metformin in case of possible cardiac cath, will use Lispro sliding scale low -On Anoro (LABA/LAMA) daily at home for newly diagnosed emphysema, pt to bring in from home, can cover with Brovana and Tiotropium tomorrow if doesn't bring in Anoro -heart healthy diet, tolerating PO so no need for IV fluids at this time Reviewed and discussed with attending, Dr. Lopez <Renetta Lopez - Last Filed: 08/16/18 17:42> Results - Vital Signs Recent Vital Signs: Last Vital Signs Temp 97.9 F 08/16/18 08:01 Pulse 59 L 08/16/18 11:59 Resp 20 08/16/18 08:01 BP 126/78 08/16/18 08:07 Pulse Ox 97 08/16/18 08:01 - Labs Result Diagrams: 08/16/18 06:45 08/16/18 06:45 Labs: Laboratory Results - last 24 hr 08/15/18 08/15/18 08/15/18 13:44 18:51 21:00 WBC RBC Hgb Hct MCV MCH MCHC RDW Plt Count MPV Neut % (Auto) Lymph % (Auto) [place] % (Auto) Eos % (Auto) Baso % (Auto) Lymph # (Auto) [place] # (Auto) Eos # (Auto) Baso # (Auto) Absolute Neuts (auto) Sodium 133 Potassium 4.4 Chloride 97 L Carbon Dioxide 26 Anion Gap 14 BUN 16 Creatinine 0.8 Est GFR ( Amer) > 60 Est GFR (Non-Af Amer) > 60 POC Glucose (mg/dL) Random Glucose 130 H Hemoglobin A1c 7.0 H Calcium 9.5 Phosphorus Magnesium 1.9 Total Bilirubin 0.3 AST 37 H D ALT 11 Alkaline Phosphatase 60 Troponin I < 0.01 NT-Pro-B Natriuret Pep 178 Total Protein 7.5 Albumin 4.4 Globulin 3.0 Albumin/Globulin Ratio 1.5 Triglycerides 142 Cholesterol 125 L LDL Cholesterol Direct 54 HDL Cholesterol 48 Urine Color Light yellow Urine Appearance Clear Urine pH 6.5 Ur Specific [place] 1.010 Urine Protein Negative Urine Glucose (UA) Negative Urine Ketones Negative Urine Blood Small H Urine Nitrate Negative Urine Bilirubin Negative Urine Urobilinogen 0.2 Ur Leukocyte Esterase Small H Urine RBC 2 - 5 H Urine WBC 1 - 3 Ur Epithelial Cells 0 - 2 Urine Bacteria Neg 08/15/18 08/15/18 08/16/18 21:46 22:38 06:45 WBC 7.5 RBC 4.11 Hgb 11.8 L Hct 35.8 L MCV 87.1 MCH 28.7 MCHC 33.0 RDW 12.9 Plt Count 244 MPV 9.4 Neut % (Auto) 45.1 L Lymph % (Auto) 45.4 H [place] % (Auto) 7.2 H Eos % (Auto) 1.9 Baso % (Auto) 0.4 Lymph # (Auto) 3.4 [place] # (Auto) 0.5 Eos # (Auto) 0.1 Baso # (Auto) 0.03 Absolute Neuts (auto) 3.41 Sodium Potassium Chloride Carbon Dioxide Anion Gap BUN Creatinine Est GFR ( Amer) Est GFR (Non-Af Amer) POC Glucose (mg/dL) 155 H Random Glucose Hemoglobin A1c Calcium Phosphorus Magnesium Total Bilirubin AST ALT Alkaline Phosphatase Troponin I < 0.01 NT-Pro-B Natriuret Pep Total Protein Albumin Globulin Albumin/Globulin Ratio Triglycerides Cholesterol LDL Cholesterol Direct HDL Cholesterol Urine Color Urine Appearance Urine pH Ur Specific [place] Urine Protein Urine Glucose (UA) Urine Ketones Urine Blood Urine Nitrate Urine Bilirubin Urine Urobilinogen Ur Leukocyte Esterase Urine RBC Urine WBC Ur Epithelial Cells Urine Bacteria 08/16/18 08/16/18 08/16/18 06:45 07:16 11:10 WBC RBC Hgb Hct MCV MCH MCHC RDW Plt Count MPV Neut % (Auto) Lymph % (Auto) [place] % (Auto) Eos % (Auto) Baso % (Auto) Lymph # (Auto) [place] # (Auto) Eos # (Auto) Baso # (Auto) Absolute Neuts (auto) Sodium 136 Potassium 4.7 Chloride 100 Carbon Dioxide 29 Anion Gap 12 BUN 16 Creatinine 0.9 Est GFR ( Amer) > 60 Est GFR (Non-Af Amer) > 60 POC Glucose (mg/dL) 138 H 231 H Random Glucose 115 H Hemoglobin A1c Calcium 9.6 Phosphorus 5.2 H Magnesium 1.9 Total Bilirubin 0.4 AST 37 H ALT 12 Alkaline Phosphatase 59 Troponin I < 0.01 NT-Pro-B Natriuret Pep Total Protein 7.5 Albumin 4.4 Globulin 3.1 Albumin/Globulin Ratio 1.4 Triglycerides Cholesterol LDL Cholesterol Direct HDL Cholesterol Urine Color Urine Appearance Urine pH Ur Specific [place] Urine Protein Urine Glucose (UA) Urine Ketones Urine Blood Urine Nitrate Urine Bilirubin Urine Urobilinogen Ur Leukocyte Esterase Urine RBC Urine WBC Ur Epithelial Cells Urine Bacteria Attending/Attestation - Attestation I have personally seen and examined this patient.: Yes I have fully participated in the care of the patient.: Yes I have reviewed all pertinent clinical information: Yes Notes (Text): 08/16/18 17:38 Attending note; Patient seen and examined with resident in ER. Patient is alert and awake. Complaining of mild chest discomfort. Denies any nausea, vomiting. Denies any palpitation. 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 1. Chest pain; admitted to telemetry. EKG showed no acute ST-T changes. Cardiac enzymes 1 negative.Cardiac enzymes 3 ordered. Cardiology evaluation requested. 2. History coronary artery disease and stent placement; continue aspirin, Plavix, Diovan, metoprolol. 3. Diabetes; continue metformin. 4. Hypothyroidism; continue Synthroid. 5. History of platelet disorder; currently patient is normal. Follow-up with hematology as outpatient. Upon discharge the patient will follow-up with PMD . Follow-up with cardiology Dr. Abbott.
[2018-08-15] MEDS ORDERED: Dextrose 50% SYRINGE Inj (50 ml) IV PRN (17:45)
[2018-08-15] MEDS ORDERED: Albuterol-Ipratrop 3 mg / 0.5 (3 ml) UD IH PRN (17:56)
[2018-08-15 18:13] LABS: HDL CHOLESTEROL 48 mg/dL (29-60)
[2018-08-15 18:24] LABS: LDL CHOLESTEROL 54 mg/dL (0-129)
[2018-08-15 20:35] VITALS: O2SAT 97
[2018-08-15 21:11] LABS: PH,URINE 6.5 (4.7-8.0); URINE BILIRUBIN NEGATIVE (NEGATIVE); URINE BLOOD SMALL (NEGATIVE); URINE GLUCOSE (UA) NEGATIVE (NEGATIVE); URINE LEUKOCYTE ESTERASE SMALL Leu/uL (NEGATIVE); URINE PROTEIN NEGATIVE mg/dL (<30 mg/dL); URINE UROBILINOGEN 0.2 E.U./dL (<1 E.U./dL)
[2018-08-15 21:19] LABS: URINE COLOR LIGHT YELLOW (YELLOW)
[2018-08-15 21:22] LABS: URINE APPEARANCE CLEAR (CLEAR); URINE BACTERIA NEG /hpf; URINE EPITHELIAL CELLS 0 - 2 /hpf (0-5)
[2018-08-15 21:47] VITALS: RESP 20
[2018-08-15] MEDS: Insulin Lispro (humaLOG) LOW Coverage SC SCH (22:00)
[2018-08-15] MEDS ORDERED: Influenza Vaccine 60 mcg/0.5 mL SYR (4YR UP) IM ONE (22:07)
[2018-08-15] MEDS ORDERED: Pneumococcal 23-Valent Vaccine IM ONE (22:07)
--- NOTE | 2018-08-16 | CARD ---
APPROVED REPORT Date of service: 08/15/2018 EKG Measurement Heart [id number] <Conclusion> Sinus rhythm with 1st degree AV block RSR' or QR pattern in V1 suggests right ventricular conduction delay Borderline ECG
[2018-08-16] MEDS ORDERED: Levothyroxine 112 MCG TAB ONE (05:31)
[2018-08-16] MEDS ORDERED: Levothyroxine 125 MCG TAB PO SCH ×2 (06:52→10:00)
[2018-08-16 07:17] LABS: BASO # 0.03 K/mm3 (0.0-2.0); BASO % 0.4 % (0.0-3.0); EOS # 0.1 (0.0-0.7); EOS % 1.9 % (1.5-5.0); HEMOGLOBIN 11.8 g/dL (12.0-16.0); LYMPH # 3.4 (1.2-3.4); LYMPH % 45.4 % (22.0-35.0); MEAN CELL VOLUME 87.1 fl (80.0-105.0); MEAN CORPUSCULAR HEMOGLOBIN 28.7 pg (25.0-35.0); MEAN PLATELET VOLUME 9.4 fl (7.0-11.0); MONO # 0.5 (0.1-0.6); MONO % 7.2 % (1.0-6.0); RBC 4.11 10^6/uL (3.5-6.1); RED CELL DISTRIBUTION WIDTH 12.9 % (11.5-14.5); WHITE BLOOD COUNT 7.5 10^3/uL (4.5-11.0)
[2018-08-16] MEDS ORDERED: Levothyroxine 25 MCG TAB PO SCH (07:30)
[2018-08-16] MEDS ORDERED: Levothyroxine 112 MCG TAB PO SCH (07:30)
[2018-08-16 07:31] LABS: TROPONIN I < 0.01 ng/mL
[2018-08-16 07:35] LABS: ALB/GLOB RATIO 1.4 (1.1-1.8); ALBUMIN 4.4 g/dL (3.0-4.8); ALT/SGPT 12 U/L (7-56); AST/SGOT 37 U/L (14-36); BLOOD UREA NITROGEN 16 mg/dL (7-21); CALCIUM 9.6 mg/dL (8.4-10.5); GFR NON-AFRICAN AMERICAN > 60
[2018-08-16] MEDS ORDERED: Metoprolol Succinate 25 mg XL Tab PO SCH (08:00)
[2018-08-16 08:01] VITALS: BP 126/78; TEMP 97.9
[2018-08-16] MEDS: Insulin Lispro (humaLOG) LOW Coverage SC SCH ×2 (08:01→11:36)
[2018-08-16] MEDS ORDERED: Non Formulary Medication (Umeclidinium Brm/Vilanterol Tr [Anoro Ellipta 62.5-25 Mcg Inh] 1 INH SCH (10:00)
[2018-08-16] MEDS ORDERED: Non Formulary Medication (Rosuvastatin Calcium [Crestor] 5 MG) PO SCH (10:00)
[2018-08-16] MEDS ORDERED: VALSARTAN 160 MG PO SCH (10:00)
[2018-08-16] MEDS ORDERED: CLOPIDOGREL 75 MG PO SCH (10:00)
[2018-08-16 12:00] VITALS: PULSE 59
[2018-08-16] MEDS ORDERED: METFORMIN 500 MG PO SCH (12:00)
--- NOTE | 2018-08-16 12:08 | CARD ---
APPROVED REPORT Date of service: 08/16/2018 EKG Measurement Heart [id number] <Conclusion> Normal sinus rhythm Normal Electrocardiogram
--- NOTE | 2018-08-16 15:56 | CP.PCM.DIS ---
<Denzel Ramirez - Last Filed: 08/16/18 15:42> Provider - Provider Date of Admission: 08/15/18 15:16 Attending physician: Renetta Lopez MD Primary care physician: Bob Saldana MD Consults: 08/15/18 16:36 Cardiology Consult Stat Comment: Consulting Provider: Geovanny Johnson Consulting Physician: Geovanny Johnson Reason for Consult: anginal pain s/p stents 08/15/18 22:07 Inpatient IN FILE OPERATOR Core Measures Referral Routine Comment: Physician Instructions: Reason For Exam: EVALUATION Transition In Care/Readmission Reduction Routine Comment: Physician Instructions: Reason For Exam: EVALUATION Time Spent in preparation of Discharge (in minutes): 35 Diagnosis - Discharge Diagnosis (1) Acute coronary syndrome Status: Ruled-out Priority: High (2) Chest pain Status: Resolved Priority: Medium (3) Uncontrolled hypertension Status: Resolved Priority: Medium (4) Unstable angina Status: Ruled-out Priority: High Hospital Course - Lab Results Lab Results: Most Recent Lab Values WBC 7.5 10^3/uL (4.5-11.0) 08/16/18 06:45 RBC 4.11 10^6/uL (3.5-6.1) 08/16/18 06:45 Hgb 11.8 g/dL (12.0-16.0) L 08/16/18 06:45 Hct 35.8 % (36.0-48.0) L 08/16/18 06:45 MCV 87.1 fl (80.0-105.0) 08/16/18 06:45 MCH 28.7 pg (25.0-35.0) 08/16/18 06:45 MCHC 33.0 g/dl (31.0-37.0) 08/16/18 06:45 RDW 12.9 % (11.5-14.5) 08/16/18 06:45 Plt Count 244 10^3/uL (120.0-450.0) 08/16/18 06:45 MPV 9.4 fl (7.0-11.0) 08/16/18 06:45 Neut % (Auto) 45.1 % (50.0-68.0) L 08/16/18 06:45 Lymph % (Auto) 45.4 % (22.0-35.0) H 08/16/18 06:45 Metcalfe % (Auto) 7.2 % (1.0-6.0) H 08/16/18 06:45 Eos % (Auto) 1.9 % (1.5-5.0) 08/16/18 06:45 Baso % (Auto) 0.4 % (0.0-3.0) 08/16/18 06:45 Lymph # (Auto) 3.4 (1.2-3.4) 08/16/18 06:45 Metcalfe # (Auto) 0.5 (0.1-0.6) 08/16/18 06:45 Eos # (Auto) 0.1 (0.0-0.7) 08/16/18 06:45 Baso # (Auto) 0.03 K/mm3 (0.0-2.0) 08/16/18 06:45 Absolute Neuts (auto) 3.41 (1.4-6.5) 08/16/18 06:45 PT 11.8 SECONDS (9.4-12.5) 08/15/18 13:44 INR 1.06 08/15/18 13:44 APTT 29.3 Seconds (26.9-38.3) 08/15/18 13:44 Sodium 136 mmol/L (132-148) 08/16/18 06:45 Potassium 4.7 mmol/L (3.6-5.0) 08/16/18 06:45 Chloride 100 mmol/L (98-107) 08/16/18 06:45 Carbon Dioxide 29 mmol/L (21-33) 08/16/18 06:45 Anion Gap 12 (10-20) 08/16/18 06:45 BUN 16 mg/dL (7-21) 08/16/18 06:45 Creatinine 0.9 mg/dl (0.7-1.2) 08/16/18 06:45 Est GFR ( Amer) > 60 08/16/18 06:45 Est GFR (Non-Af Amer) > 60 08/16/18 06:45 POC Glucose (mg/dL) 231 mg/dL (65-110) H 08/16/18 11:10 Random Glucose 115 mg/dL (70-110) H 08/16/18 06:45 Hemoglobin A1c 7.0 % (4.2-6.5) H 08/15/18 18:51 Calcium 9.6 mg/dL (8.4-10.5) 08/16/18 06:45 Phosphorus 5.2 mg/dL (2.5-4.5) H 08/16/18 06:45 Magnesium 1.9 mg/dL (1.7-2.2) 08/16/18 06:45 Total Bilirubin 0.4 mg/dL (0.2-1.3) 08/16/18 06:45 AST 37 U/L (14-36) H 08/16/18 06:45 ALT 12 U/L (7-56) 08/16/18 06:45 Alkaline Phosphatase 59 U/L (38-126) 08/16/18 06:45 Troponin I < 0.01 ng/mL 08/16/18 06:45 NT-Pro-B Natriuret Pep 178 pg/mL (0-450) 08/15/18 13:44 Total Protein 7.5 g/dL (5.8-8.3) 08/16/18 06:45 Albumin 4.4 g/dL (3.0-4.8) 08/16/18 06:45 Globulin 3.1 gm/dL 08/16/18 06:45 Albumin/Globulin Ratio 1.4 (1.1-1.8) 08/16/18 06:45 Triglycerides 142 mg/dL (35-160) 08/15/18 13:44 Cholesterol 125 mg/dL (130-200) L 08/15/18 13:44 LDL Cholesterol Direct 54 mg/dL (0-129) 08/15/18 13:44 HDL Cholesterol 48 mg/dL (29-60) 08/15/18 13:44 Urine Color Light yellow (YELLOW) 08/15/18 21:00 Urine Appearance Clear (CLEAR) 08/15/18 21:00 Urine pH 6.5 (4.7-8.0) 08/15/18 21:00 Ur Specific Whitehall 1.010 (1.005-1.035) 08/15/18 21:00 Urine Protein Negative mg/dL (<30 mg/dL) 08/15/18 21:00 Urine Glucose (UA) Negative mg/dL (NEGATIVE) 08/15/18 21:00 Urine Ketones Negative mg/dL (NEGATIVE) 08/15/18 21:00 Urine Blood Small (NEGATIVE) H 08/15/18 21:00 Urine Nitrate Negative (NEGATIVE) 08/15/18 21:00 Urine Bilirubin Negative (NEGATIVE) 08/15/18 21:00 Urine Urobilinogen 0.2 E.U./dL (<1 E.U./dL) 08/15/18 21:00 Ur Leukocyte Esterase Small Deanna/uL (NEGATIVE) H 08/15/18 21:00 Urine RBC 2 - 5 /hpf (0-2) H 08/15/18 21:00 Urine WBC 1 - 3 /hpf (0-6) 08/15/18 21:00 Ur Epithelial Cells 0 - 2 /hpf (0-5) 08/15/18 21:00 Urine Bacteria Neg /hpf (NONE) 08/15/18 21:00 - Hospital Course Hospital Course: Hospitalist Service Discharge Summary Denzel Ramirez , IM PGY-3 This is a 71 yo F with PMH of [place], CAD s/p 4 stents, HLD, DM2, HTN, myasthenia gravis, hypothyroidism, 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 Patient was admitted for observation to rule out ACS. While here, she had 2 EKGs that were negative for acute ST-segment changes, and 3 troponin measures that were negative. Patient was also seen by Cardiology (Dr. Johnson), who cleared the patient for discharge. On exam today, patient was awake and alert, sitting up in bed, without acute complaint. She is eager to be discharged, and reports complete resolution of chest sensation. She was instructed to resume all home medications as previously prescribed, to follow up with her PMD (Dr. Saldana) within 1 week, and with her Creche Attendant within 1-2 weeks, or as scheduled by them. She expressed understanding and agreement with these instructions. All questions were answered to her satisfaction, and then she was discharged. Seen, reviewed, and discussed with attending, Dr. Lopez. Discharge Exam - Additional Findings Additional findings: - Constitutional Appears: Non-toxic, No Acute Distress - Head Exam Head Exam: ATRAUMATIC, NORMAL INSPECTION, NORMOCEPHALIC - Eye Exam Right eye central blindness, but full ROM of eye, some intact but indistinct R peripheral vision; EOMI intact b/l, otherwise normal appearance, no scleral icterus - ENT Exam ENT Exam: Mucous Membranes Moist - Neck Exam Neck exam: Negative for: Full Rom, Lymphadenopathy, Tenderness, Thyromegaly - Respiratory Exam Respiratory Exam: Clear to Auscultation Bilateral, NORMAL BREATHING PATTERN. absent: Accessory Muscle Use, Chest Wall Tenderness (no tenderness with palpation at site of "bubble" sensation or anywhere tomorrow adjacent), Decreased Breath Sounds, Rales, Rhonchi, Wheezes - Cardiovascular Exam Cardiovascular Exam: REGULAR RHYTHM, RRR, +S1, +S2. absent: Bradycardia, Tachycardia, Irregular Rhythm, JVD, +S4 - GI/Abdominal Exam GI & Abdominal Exam: Normal Bowel Sounds, Soft. absent: Diminished Bowel Sounds, Distended, Firm, Guarding, Hyperactive Bowel Sounds, Hypoactive Bowel Sounds, Rigid, Tenderness - Extremities Exam Extremities exam: Positive for: full ROM, normal capillary refill, normal inspection, pedal pulses present. Negative for: calf tenderness, joint swelling, pedal edema, tenderness - Back Exam Back exam: absent: CVA tenderness (L), CVA tenderness (R) - Neurological Exam Neurological exam: Alert, Oriented x3, moving all extremities spontaneously and on command, following all commands appropriately, sensory grossly intact and equal bilaterally; reports some diminished sensation in bilateral LE but sensation to touch appears intact - Psychiatric Exam Psychiatric exam: Normal Affect, Normal Mood - Skin Skin Exam: Dry, Intact, Normal Color, Warm Discharge Plan - Follow Up Plan Condition: GOOD Disposition: HOME/ ROUTINE Instructions: Chest Pain That Is Not Caused by the Heart (DC), Chest Pain (DC) Additional Instructions: You were seen in the hospital due to your chest pain. Fortunately, the labwork and testing done thus far suggests that it is not cardiac in origin. Please follow up with your PMD (Dr. Saldana) within 1 week of discharge. Please follow up with your Creche Attendant (Dr. Johnson) within 1-2, or as he has previously scheduled you. Please resume all home medications as previously prescribed. If you experience new concerning or worsening symptoms, please report to the nearest Emergency Department. Referrals: Geovanny Johnson MD [Staff Provider] - Bob Saldana MD [Primary Care Provider] - <Renetta Lopez - Last Filed: 08/16/18 17:44> Provider - Provider Date of Admission: 08/15/18 15:16 Attending physician: Renetta Lopez MD Primary care physician: Bob Saldana MD Consults: 08/15/18 16:36 Cardiology Consult Stat Comment: Consulting Provider: Geovanny Johnson Consulting Physician: Geovanny Johnson Reason for Consult: anginal pain s/p stents 08/15/18 22:07 Inpatient IN FILE OPERATOR Core Measures Referral Routine Comment: Physician Instructions: Reason For Exam: EVALUATION Transition In Care/Readmission Reduction Routine Comment: Physician Instructions: Reason For Exam: EVALUATION Hospital Course - Lab Results Lab Results: Most Recent Lab Values WBC 7.5 10^3/uL (4.5-11.0) 08/16/18 06:45 RBC 4.11 10^6/uL (3.5-6.1) 08/16/18 06:45 Hgb 11.8 g/dL (12.0-16.0) L 08/16/18 06:45 Hct 35.8 % (36.0-48.0) L 08/16/18 06:45 MCV 87.1 fl (80.0-105.0) 08/16/18 06:45 MCH 28.7 pg (25.0-35.0) 08/16/18 06:45 MCHC 33.0 g/dl (31.0-37.0) 08/16/18 06:45 RDW 12.9 % (11.5-14.5) 08/16/18 06:45 Plt Count 244 10^3/uL (120.0-450.0) 08/16/18 06:45 MPV 9.4 fl (7.0-11.0) 08/16/18 06:45 Neut % (Auto) 45.1 % (50.0-68.0) L 08/16/18 06:45 Lymph % (Auto) 45.4 % (22.0-35.0) H 08/16/18 06:45 Metcalfe % (Auto) 7.2 % (1.0-6.0) H 08/16/18 06:45 Eos % (Auto) 1.9 % (1.5-5.0) 08/16/18 06:45 Baso % (Auto) 0.4 % (0.0-3.0) 08/16/18 06:45 Lymph # (Auto) 3.4 (1.2-3.4) 08/16/18 06:45 Metcalfe # (Auto) 0.5 (0.1-0.6) 08/16/18 06:45 Eos # (Auto) 0.1 (0.0-0.7) 08/16/18 06:45 Baso # (Auto) 0.03 K/mm3 (0.0-2.0) 08/16/18 06:45 Absolute Neuts (auto) 3.41 (1.4-6.5) 08/16/18 06:45 PT 11.8 SECONDS (9.4-12.5) 08/15/18 13:44 INR 1.06 08/15/18 13:44 APTT 29.3 Seconds (26.9-38.3) 08/15/18 13:44 Sodium 136 mmol/L (132-148) 08/16/18 06:45 Potassium 4.7 mmol/L (3.6-5.0) 08/16/18 06:45 Chloride 100 mmol/L (98-107) 08/16/18 06:45 Carbon Dioxide 29 mmol/L (21-33) 08/16/18 06:45 Anion Gap 12 (10-20) 08/16/18 06:45 BUN 16 mg/dL (7-21) 08/16/18 06:45 Creatinine 0.9 mg/dl (0.7-1.2) 08/16/18 06:45 Est GFR ( Amer) > 60 08/16/18 06:45 Est GFR (Non-Af Amer) > 60 08/16/18 06:45 POC Glucose (mg/dL) 231 mg/dL (65-110) H 08/16/18 11:10 Random Glucose 115 mg/dL (70-110) H 08/16/18 06:45 Hemoglobin A1c 7.0 % (4.2-6.5) H 08/15/18 18:51 Calcium 9.6 mg/dL (8.4-10.5) 08/16/18 06:45 Phosphorus 5.2 mg/dL (2.5-4.5) H 08/16/18 06:45 Magnesium 1.9 mg/dL (1.7-2.2) 08/16/18 06:45 Total Bilirubin 0.4 mg/dL (0.2-1.3) 08/16/18 06:45 AST 37 U/L (14-36) H 08/16/18 06:45 ALT 12 U/L (7-56) 08/16/18 06:45 Alkaline Phosphatase 59 U/L (38-126) 08/16/18 06:45 Troponin I < 0.01 ng/mL 08/16/18 06:45 NT-Pro-B Natriuret Pep 178 pg/mL (0-450) 08/15/18 13:44 Total Protein 7.5 g/dL (5.8-8.3) 08/16/18 06:45 Albumin 4.4 g/dL (3.0-4.8) 08/16/18 06:45 Globulin 3.1 gm/dL 08/16/18 06:45 Albumin/Globulin Ratio 1.4 (1.1-1.8) 08/16/18 06:45 Triglycerides 142 mg/dL (35-160) 08/15/18 13:44 Cholesterol 125 mg/dL (130-200) L 08/15/18 13:44 LDL Cholesterol Direct 54 mg/dL (0-129) 08/15/18 13:44 HDL Cholesterol 48 mg/dL (29-60) 08/15/18 13:44 Urine Color Light yellow (YELLOW) 08/15/18 21:00 Urine Appearance Clear (CLEAR) 08/15/18 21:00 Urine pH 6.5 (4.7-8.0) 08/15/18 21:00 Ur Specific [place] 1.010 (1.005-1.035) 08/15/18 21:00 Urine Protein Negative mg/dL (<30 mg/dL) 08/15/18 21:00 Urine Glucose (UA) Negative mg/dL (NEGATIVE) 08/15/18 21:00 Urine Ketones Negative mg/dL (NEGATIVE) 08/15/18 21:00 Urine Blood Small (NEGATIVE) H 08/15/18 21:00 Urine Nitrate Negative (NEGATIVE) 08/15/18 21:00 Urine Bilirubin Negative (NEGATIVE) 08/15/18 21:00 Urine Urobilinogen 0.2 E.U./dL (<1 E.U./dL) 08/15/18 21:00 Ur Leukocyte Esterase Small Deanna/uL (NEGATIVE) H 08/15/18 21:00 Urine RBC 2 - 5 /hpf (0-2) H 08/15/18 21:00 Urine WBC 1 - 3 /hpf (0-6) 08/15/18 21:00 Ur Epithelial Cells 0 - 2 /hpf (0-5) 08/15/18 21:00 Urine Bacteria Neg /hpf (NONE) 08/15/18 21:00 Attending/Attestation - Attestation I have personally seen and examined this patient.: Yes I have fully participated in the care of the patient.: Yes I have reviewed all pertinent clinical information, including history, physical exam and plan: Yes Notes (Text): 08/16/18 17:43 Attending note; Patient seen and examined with resident. Patient is alert and awake. Denies any chest pain. Denies any nausea, vomiting. Denies any palpitation. 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 1. Chest pain; resolved.Cardiac enzymes 3 negative. Cardiology evaluation appreciated. 2. History coronary artery disease and stent placement; continue aspirin, Plavix, Diovan, metoprolol. 3. Diabetes; continue metformin. 4. Hypothyroidism; continue Synthroid. 5. History of platelet disorder; currently patient is normal. Follow-up with hematology as outpatient. Patient will be discharged home today. Upon discharge the patient will follow-up with PMD . Follow-up with cardiology Dr. Abbott.
--- NOTE | 2018-08-16 23:23 | CON ---
DATE: 08/16/2018 REQUESTING PHYSICIAN: Dr. Castellanos REASON FOR CONSULTATION: Chest pain. HISTORY: This is a 73-year-old woman known to us with a history of coronary artery disease, status post prior multivessel PCI, who was admitted after complaints of chest discomfort over the past several days. She initially had substernal chest and left arm discomfort which was relieved with rest. The day prior to admission, she had persistent chest and shoulder pain which was unresponsive to aspirin or nitroglycerin use. She told her of her discomfort and he became concerned and brought her to the emergency room. Electrocardiogram and cardiac enzymes have been unremarkable. She does have a history of hypertension, hyperlipidemia and diabetes. PAST MEDICAL HISTORY: Notable for myasthenia gravis, hyperthyroidism, possible prior ITP as well as right eye central blindness felt to be due to an embolic event. She has undergone a prior cholecystectomy as well as right knee arthroscopy. CURRENT MEDICATIONS: Include Diovan, DuoNeb inhaler, Ecotrin, Glucophage, Plavix, metoprolol ER 500 mg daily, Crestor 5 mg daily, Synthroid 112 mcg daily. ALLERGIES: SHE HAS HAD A REACTION TO LIPITOR AND CLARITHROMYCIN IN THE PAST. SOCIAL HISTORY: She does not smoke or drink. FAMILY HISTORY: Notable for several family members with premature heart disease as well as diabetes. REVIEW OF SYSTEMS: Ten-point review of systems is otherwise unremarkable. PHYSICAL EXAMINATION: GENERAL: She is an elderly woman, appears comfortable at the present time. VITAL SIGNS: Her blood pressure is 176/78 with a pulse of 60 and sinus, respirations of 16. She is afebrile. HEENT: Normocephalic, atraumatic. NECK: Supple. No JVD noted. CHEST: Few scattered rhonchi heard. HEART: PMI displaced laterally with systolic murmur at the left sternal border. ABDOMEN: Soft, nontender, normoactive bowel sounds. EXTREMITIES: No edema. SKIN: Warm and dry. PSYCHIATRIC: Normal mood and affect. NEUROLOGIC: Alert and oriented x3. No gross motor or sensory deficits appreciable. DIAGNOSTIC DATA: White count 7.5, hemoglobin and hematocrit at 11.8 and 35.8 with a platelet count of 244,000. PT and PTT were normal. Potassium is 4.7. BUN and creatinine are 16 and 0.9. Hemoglobin A1c is 7%. Three sets of cardiac enzymes are negative. Cholesterol 125 with an HDL of 48 and LDL of 54. Electrocardiogram reveals sinus rhythm with first-degree AV block and right ventricular conduction delay, no acute changes seen. Chest x-ray reveals normal cardiac silhouette with clear lung crow. IMPRESSION: 1. Chest pain, appears somewhat atypical in nature, more likely due to neuropathic or musculoskeletal cause given persistent throughout the day yesterday. No clear evidence of cardiac ischemia. 2. Known coronary artery disease, status post prior percutaneous coronary intervention, clinically stable. 3. Rest of problems as noted. RECOMMENDATIONS: From a cardiac standpoint, she appears stable for discharge home at this time. Outpatient followup will be arranged. Her current medications will be continued. Consideration will be given to a followup stress testing if she has recurrent symptoms. Thank you for this consultation. We will be happy to arrange for outpatient followup. Geovanny Johnson MD [facility] # [id number]
[2018-08-17] MEDS ORDERED: SYNTHROID 125 MCG PO SCH (06:00)
[2018-08-17] MEDS ORDERED: Levothyroxine 125 MCG TAB PO SCH (06:00)
[2018-08-17] MEDS ORDERED: METOPROLOL 25 MG PO SCH (08:00)
[2018-08-17] MEDS ORDERED: Levothyroxine 125 MCG TAB PO ONE (08:27)
== END 2018-08-16 13:49 | disposition home or self-care (01) ==
LOC: ED 13:11 → ERH 15:16 → 3RNO 20:27
PROVIDERS: ADMIT Internal Medicine; ATTEND Internal Medicine
DX: R07.89 Other chest pain (principal); I25.10 Atherosclerotic heart disease of native coronary artery without angina pectoris; E11.9 Type 2 diabetes mellitus without complications; G70.00 Myasthenia gravis without (acute) exacerbation; D69.1 Qualitative platelet defects; E03.9 Hypothyroidism, unspecified; E78.5 Hyperlipidemia, unspecified; I10 Essential (primary) hypertension; J45.909 Unspecified asthma, uncomplicated; K59.00 Constipation, unspecified; Z95.5 Presence of coronary angioplasty implant and graft; Z85.828 Personal history of other malignant neoplasm of skin; H54.61 Unqualified visual loss, right eye, normal vision left eye
CPT/HCPCS: 36415; 71045; 80053; 80061; 81001; 82948; 83036; 83735; 83880; 84100; 84484; 85025; 85610; 85730; 93005; 99285; G0378

== ENCOUNTER 2018-09-09 09:27 | Outpatient (CLI) | payer MEDICARE, OTHER | END 2018-09-09 09:28 | disposition home or self-care (01) | LOC: RAD 09:27 ==